=== PATIENT | female | born 1935 | race Caucasian/White ===

== ENCOUNTER 2016-09-22 12:30 | Emergency (ER) | payer OTHER ==
[~2016-09-22 12:30] MED LIST: ASPI81TA85 PO; ATEN100T PO; HYZA100T6 PO; LIPI20TA PO; MULT1TAB10 PO; NEXI40CA PO; VITA200016 PO
--- NOTE | 2016-09-22 13:35 | EDDOCDS ---
Nurse's Notes [facility] Name: Nata Monroy Age: 80 yrs Sex: Female : 1935 Arrival Date: 09/22/2016 Time: 12:30 Bed Triage 3 Private MD: NO PRIMARY PHYSICIAN, . Diagnosis: Ventral hernia-LEFT ABDOMEN Presentation: 09/22 12:36 Presenting complaint: Patient states: "My side is bothering me. I've got a hernia in jc4 the same spot". Complains of pain that began 2-3 weeks ago, but is worse today. Adult Sepsis Screening: The patient does not have new or worsening altered mentation. Patient's respiratory rate is less than 22. Systolic blood pressure is greater than 100. Patient has a qSOFA score of 0- Negative Sepsis Screen. Suicide/Homicide risk assessment- the patient denies having any suicidal and/or homicidal ideations and does not present with any other emotional, behavioral or mental health complaints. Status: Patient is not a mechanical service specialist or dependent. Transition of care: patient was not received from another setting of care. 12:36 Method Of Arrival: Walkin/Carried/Asstd [facility] 12:43 Acuity: LONG Level 3 4 Triage Assessment: 12:42 General: Appears in no apparent distress. 4 12:42 Pain: Pain currently is 8 out of 10 on a pain scale. 4 Historical: - Allergies: no known allergies; - Home Meds: 1. Vitamin D Oral 2000 units daily (Last dose: 09/22/2016 07:45) 2. atenolol 100 mg Oral tab 1 tab once daily (Last dose: 09/22/2016 07:45) 3. Lipitor 40 mg Oral tab 1 tab once daily (Last dose: 09/22/2016 07:45) 4. aspirin 81 mg Oral tab 1 tab once daily (Last dose: 09/22/2016 07:45) 5. losartan-hydrochlorothiazide 100-25 mg oral tab 1 tab once daily (Last dose: 09/22/2016 07:45) 6. multivitamin Oral tab 1 tablet daily (Last dose: 09/22/2016 07:45) 7. Nexium 40 mg Oral cpDR 1 cap once daily (Last dose: 09/22/2016 07:45) - PMHx: Hypertension; Hypercholesterolemia; - PSHx: Aortic Aneurysm Repair; CABG; - Social history: Smoking status: Patient states was never smoker of tobacco. No barriers to communication noted, The patient speaks fluent Estonian. - Family history: Not pertinent. - : The pt / caregiver states he / she is not on anticoagulants. Home medication list is obtained from the patient. - Exposure Risk Screening:: None identified. Screenin:50 Screening information is obtained from the patient. Fall risk: At risk due to age. js13 Assistance ADL's: requires no assistance with activities of daily living. Abuse/DV Screen: The patient / caregiver reports he/she is: not in a situation that causes fear, pain or injury. Nutritional screening: No deficits noted. Advance Directives: There is no active DNR order. home support is adequate. Assessment: 13:30 General: Appears in no apparent distress, Behavior is appropriate for age, cooperative. js13 Pain: Pain currently is 4 out of 10 on a pain scale. Neurological: Level of Consciousness is awake, alert. Respiratory: Airway is patent Respiratory effort is even, unlabored, Respiratory pattern is regular, symmetrical. Derm: Skin is pink, warm & dry. Vital Signs: 12:31 BP 187 / 86; Pulse 93; Resp 18 S; Temp 96.7(O); Pulse Ox 96% on R/A; Weight 84.82 kg gr2 (R); Height 5 ft. 4 in. (162.56 cm) (R); Pain 8/10; 12:49 BP 164 / 70 RA Sitting (man/reg); dem1 13:31 BP 161 / 72; Pulse 78; Resp 18; Temp 96.2(O); Pulse Ox 96% on R/A; Pain 2/10; nb2 12:31 Body Mass Index 32.10 (84.82 kg, 162.56 cm) gr2 Vitals: 12:31 Log In Time: September 22, 2016 at 12:31. gr2 ED Course: 12:31 Patient visited by Aislinn Hanson. gr2 12:31 NO PRIMARY PHYSICIAN, . is Private Physician. gr2 12:31 Patient moved to Waiting gr2 12:34 Patient visited by Aislinn Hanson. gr2 12:35 Patient moved to Pre RCE gr2 12:38 Triage Initiated jc4 12:43 Patient moved to Triage 3 jc4 12:50 Patient visited by Yaneth Chen. dem1 12:50 The patient / caregiver is instructed regarding the plan of care and ED course. js13 13:08 Patient name changed from Nata\\S\\R\\S\\Monroy\\S\\ to Nata\\S\\Liv\\S\\Monroy. EDMS 13:09 [facility]. dt4 13:09 Layla Bassett MD is Attending Physician. dt4 13:09 Patient visited by Aurelia Gandara PA-C. dt4 13:09 [facility] Payment Agreement was scanned into [employer] and attached to record. 13:29 Walt Mott is Referral Physician. dt4 13:30 No IV's were initiated during this patient's visit. No procedures done that require 13 assistance. 13:32 Patient visited by Norma Davis. nb2 Order Results: There are currently no results for this order. Outcome: 13:29 Discharge ordered by Provider. dt4 13:30 Discharge Assessment: Patient awake, alert and oriented x 3. No cognitive and/or js13 functional deficits noted. Patient verbalized understanding of disposition instructions. patient administered narcotics - no. The following High Risk Discharge criteria are identified: None. Discharged to home ambulatory, with family. Condition: stable Condition: improved. Discharge instructions given to patient, Instructed on discharge instructions, follow up and referral plans. Demonstrated understanding of instructions, Pt was receptive of discharge instructions/ teaching. No special radiology studies were completed. Property :Personal belongings accompany Pt. 13:33 Patient left the ED. js13 Signatures: Dispatcher [employer] EDVT Sandro Gudino, Reg Reg lg Amanda Nuñez, RN RN jc4 Yaneth Chen dem1 Amanda Ledesma,MARIANNA RN js13 Aislinn Hanson gr2 Aurelia Gandara PA-C PA-C dt4 Norma Davis nb2 Corrections: (The following items were deleted from the chart) 12:44 12:36 Acuity: LONG Level 4 jc jc4 MTDD
--- NOTE | 2016-09-22 13:35 | EDDOCDS ---
Physician Documentation [facility] Name: Nata Monroy Age: 80 yrs Sex: Female : 1935 Arrival Date: 09/22/2016 Time: 12:30 Bed Triage 3 Private MD: NO PRIMARY PHYSICIAN, . Disposition: 09/22/16 13:29 Discharged to Home/Self Care. Impression: Ventral hernia - LEFT ABDOMEN. - Condition is Stable. - Discharge Instructions: Hernia. - Medication Reconciliation, Local Pharmacy Hours form. - Follow up: Emergency Department; When: As needed; Reason: Worsening of conditions. Follow up: Walt Garcia; When: Call to arrange an appointment; Reason: Wound/Symptom Recheck, Recheck today's complaints, Continuance of care. - Problem is new. - Symptoms have improved. - Notes: CALL DR. GARCIA'S OFFICE SATURDAY TO SCHEDULE AN APPOINTMENT TO BE SEEN FOR THE HERNIA. IF THIS AREA EVER BECOMES RED, PAINFUL, HARD OR YOU ARE HAVING FEVERS, NAUSEA, VOMITING, PLEASE RETURN TO THE ER IMMEDIATELY THESE COULD BE A SURGICAL EMERGENCY. Historical: - Allergies: no known allergies; - Home Meds: 1. Vitamin D Oral 2000 units daily (Last dose: 09/22/2016 07:45) 2. atenolol 100 mg Oral tab 1 tab once daily (Last dose: 09/22/2016 07:45) 3. Lipitor 40 mg Oral tab 1 tab once daily (Last dose: 09/22/2016 07:45) 4. aspirin 81 mg Oral tab 1 tab once daily (Last dose: 09/22/2016 07:45) 5. losartan-hydrochlorothiazide 100-25 mg oral tab 1 tab once daily (Last dose: 09/22/2016 07:45) 6. multivitamin Oral tab 1 tablet daily (Last dose: 09/22/2016 07:45) 7. Nexium 40 mg Oral cpDR 1 cap once daily (Last dose: 09/22/2016 07:45) - PMHx: Hypertension; Hypercholesterolemia; - PSHx: Aortic Aneurysm Repair; CABG; - Social history: Smoking status: Patient states was never smoker of tobacco. No barriers to communication noted, The patient speaks fluent Solomon Islander. - Family history: Not pertinent. - : The pt / caregiver states he / she is not on anticoagulants. Home medication list is obtained from the patient. - Exposure Risk Screening:: None identified. Vital Signs: 09/22 12:31 BP 187 / 86; Pulse 93; Resp 18 S; Temp 96.7(O); Pulse Ox 96% on R/A; Weight 84.82 kg / gr2 187 lbs (R); Height 5 ft. 4 in. (162.56 cm) (R); Pain 8/10; 12:49 BP 164 / 70 RA Sitting (man/reg); dem1 13:31 BP 161 / 72; Pulse 78; Resp 18; Temp 96.2(O); Pulse Ox 96% on R/A; Pain 2/10; nb2 12:31 Body Mass Index 32.10 (84.82 kg, 162.56 cm) gr2 MDM: 13:09 [facility] Payment Agreement was scanned into [employer] and attached to record. 13:09 Financial registration complete. Signatures: Sandro Gudino, Reg Reg Amanda Nuñez RN RN jc4 Amanda Ledesma RN RN js13 Aurelia Gandara, PANestor PAMauriceC dt4 The chart was reviewed and I authenticate all verbal orders and agree with the evaluation and treatment provided.Attachments: 13:09 [facility] Payment Agreement lg MTDD
--- NOTE | 2016-09-25 11:05 | EDDOCDS ---
Physician Documentation [facility] Name: Nata Monroy Age: 80 yrs Sex: Female : 1935 Arrival Date: 09/22/2016 Time: 12:30 Bed Triage 3 Private MD: NO PRIMARY PHYSICIAN, . Disposition: 09/22/16 13:29 Discharged to Home/Self Care. Impression: Ventral hernia - LEFT ABDOMEN. - Condition is Stable. - Discharge Instructions: Hernia. - Medication Reconciliation, Local Pharmacy Hours form. - Follow up: Emergency Department; When: As needed; Reason: Worsening of conditions. Follow up: Walt Garcia; When: Call to arrange an appointment; Reason: Wound/Symptom Recheck, Recheck today's complaints, Continuance of care. - Problem is new. - Symptoms have improved. - Notes: CALL DR. GARCIA'S OFFICE SATURDAY TO SCHEDULE AN APPOINTMENT TO BE SEEN FOR THE HERNIA. IF THIS AREA EVER BECOMES RED, PAINFUL, HARD OR YOU ARE HAVING FEVERS, NAUSEA, VOMITING, PLEASE RETURN TO THE ER IMMEDIATELY THESE COULD BE A SURGICAL EMERGENCY. Historical: - Allergies: no known allergies; - Home Meds: 1. Vitamin D Oral 2000 units daily (Last dose: 09/22/2016 07:45) 2. atenolol 100 mg Oral tab 1 tab once daily (Last dose: 09/22/2016 07:45) 3. Lipitor 40 mg Oral tab 1 tab once daily (Last dose: 09/22/2016 07:45) 4. aspirin 81 mg Oral tab 1 tab once daily (Last dose: 09/22/2016 07:45) 5. losartan-hydrochlorothiazide 100-25 mg oral tab 1 tab once daily (Last dose: 09/22/2016 07:45) 6. multivitamin Oral tab 1 tablet daily (Last dose: 09/22/2016 07:45) 7. Nexium 40 mg Oral cpDR 1 cap once daily (Last dose: 09/22/2016 07:45) - PMHx: Hypertension; Hypercholesterolemia; - PSHx: Aortic Aneurysm Repair; CABG; - Social history: Smoking status: Patient states was never smoker of tobacco. No barriers to communication noted, The patient speaks fluent St Helenian. - Family history: Not pertinent. - : The pt / caregiver states he / she is not on anticoagulants. Home medication list is obtained from the patient. - Exposure Risk Screening:: None identified. Vital Signs: 09/22 12:31 BP 187 / 86; Pulse 93; Resp 18 S; Temp 96.7(O); Pulse Ox 96% on R/A; Weight 84.82 kg / gr2 187 lbs (R); Height 5 ft. 4 in. (162.56 cm) (R); Pain 8/10; 12:49 BP 164 / 70 RA Sitting (man/reg); dem1 13:31 BP 161 / 72; Pulse 78; Resp 18; Temp 96.2(O); Pulse Ox 96% on R/A; Pain 2/10; nb2 12:31 Body Mass Index 32.10 (84.82 kg, 162.56 cm) gr2 MDM: 13:09 [facility] Payment Agreement was scanned into [employer] and attached to record. lg 13:09 Financial registration complete. lg 13:35 ED course: PT STATES LEFT SIDED ABDOMINAL PAIN THAT BEGAN TODAY AFTER CLEANING OFF HER dt4 CAR. STATES HX OF A HERNIA OVER THE AREA OF CONCERN FROM AN ANEURYSM REPAIR YEARS AGO. STATES HAS NOT HAD THE HERNIA PREVIOUSLY REPAIRED. AFTER WALKING INTO EXAM ROOM, PT STATES HER PAIN HAS NOW IMPROVED. DENIES ANY PAIN CURRENTLY. . 15:49 T-Sheet-- Draft Copy was scanned into [employer] and attached to record. klr Signatures: Sandro Gudino, Reg Reg lg Amanda Nuñez, RN RN jc4 Amanda Ledesma,RN RN js13 Aurelia Gandara, PHOEBE PAAlivia Giles The chart was reviewed and I authenticate all verbal orders and agree with the evaluation and treatment provided.Attachments: 13:09 [facility] Payment Agreement lg 15:49 T-Sheet-- Draft Copy klr Chart Complete MTDD
--- NOTE | 2016-09-25 11:05 | EDDOCDS ---
Nurse's Notes [facility] Name: Nata Monroy Age: 80 yrs Sex: Female : 1935 Arrival Date: 09/22/2016 Time: 12:30 Bed Triage 3 Private MD: NO PRIMARY PHYSICIAN, . Diagnosis: Ventral hernia-LEFT ABDOMEN Presentation: 09/22 12:36 Presenting complaint: Patient states: "My side is bothering me. I've got a hernia in jc4 the same spot". Complains of pain that began 2-3 weeks ago, but is worse today. Adult Sepsis Screening: The patient does not have new or worsening altered mentation. Patient's respiratory rate is less than 22. Systolic blood pressure is greater than 100. Patient has a qSOFA score of 0- Negative Sepsis Screen. Suicide/Homicide risk assessment- the patient denies having any suicidal and/or homicidal ideations and does not present with any other emotional, behavioral or mental health complaints. Status: Patient is not a service representative or dependent. Transition of care: patient was not received from another setting of care. 12:36 Method Of Arrival: Walkin/Carried/Asstd [facility] 12:43 Acuity: LONG Level 3 4 Triage Assessment: 12:42 General: Appears in no apparent distress. 4 12:42 Pain: Pain currently is 8 out of 10 on a pain scale. 4 Historical: - Allergies: no known allergies; - Home Meds: 1. Vitamin D Oral 2000 units daily (Last dose: 09/22/2016 07:45) 2. atenolol 100 mg Oral tab 1 tab once daily (Last dose: 09/22/2016 07:45) 3. Lipitor 40 mg Oral tab 1 tab once daily (Last dose: 09/22/2016 07:45) 4. aspirin 81 mg Oral tab 1 tab once daily (Last dose: 09/22/2016 07:45) 5. losartan-hydrochlorothiazide 100-25 mg oral tab 1 tab once daily (Last dose: 09/22/2016 07:45) 6. multivitamin Oral tab 1 tablet daily (Last dose: 09/22/2016 07:45) 7. Nexium 40 mg Oral cpDR 1 cap once daily (Last dose: 09/22/2016 07:45) - PMHx: Hypertension; Hypercholesterolemia; - PSHx: Aortic Aneurysm Repair; CABG; - Social history: Smoking status: Patient states was never smoker of tobacco. No barriers to communication noted, The patient speaks fluent Georgian. - Family history: Not pertinent. - : The pt / caregiver states he / she is not on anticoagulants. Home medication list is obtained from the patient. - Exposure Risk Screening:: None identified. Screenin:50 Screening information is obtained from the patient. Fall risk: At risk due to age. js13 Assistance ADL's: requires no assistance with activities of daily living. Abuse/DV Screen: The patient / caregiver reports he/she is: not in a situation that causes fear, pain or injury. Nutritional screening: No deficits noted. Advance Directives: There is no active DNR order. home support is adequate. Assessment: 13:30 General: Appears in no apparent distress, Behavior is appropriate for age, cooperative. js13 Pain: Pain currently is 4 out of 10 on a pain scale. Neurological: Level of Consciousness is awake, alert. Respiratory: Airway is patent Respiratory effort is even, unlabored, Respiratory pattern is regular, symmetrical. Derm: Skin is pink, warm & dry. Vital Signs: 12:31 BP 187 / 86; Pulse 93; Resp 18 S; Temp 96.7(O); Pulse Ox 96% on R/A; Weight 84.82 kg gr2 (R); Height 5 ft. 4 in. (162.56 cm) (R); Pain 8/10; 12:49 BP 164 / 70 RA Sitting (man/reg); dem1 13:31 BP 161 / 72; Pulse 78; Resp 18; Temp 96.2(O); Pulse Ox 96% on R/A; Pain 2/10; nb2 12:31 Body Mass Index 32.10 (84.82 kg, 162.56 cm) gr2 Vitals: 12:31 Log In Time: September 22, 2016 at 12:31. gr2 ED Course: 12:31 Patient visited by Aislinn Hanson. gr2 12:31 NO PRIMARY PHYSICIAN, . is Private Physician. gr2 12:31 Patient moved to Waiting gr2 12:34 Patient visited by Aislinn Hanson. gr2 12:35 Patient moved to Pre RCE gr2 12:38 Triage Initiated jc4 12:43 Patient moved to Triage 3 jc4 12:50 Patient visited by Yaneth Chen. dem1 12:50 The patient / caregiver is instructed regarding the plan of care and ED course. js13 13:08 Patient name changed from Nata\\S\\R\\S\\Monroy\\S\\ to Nata\\S\\Liv\\S\\Monroy. EDMS 13:09 Aurelia Gandara PA-C is PHCP. dt4 13:09 Layla Bassett MD is Attending Physician. dt4 13:09 Patient visited by Aurelia Gandara PA-C. dt4 13:09 [facility] Payment Agreement was scanned into [employer] and attached to record. lg 13:29 Walt Mott is Referral Physician. dt4 13:30 No IV's were initiated during this patient's visit. No procedures done that require js13 assistance. 13:32 Patient visited by Norma Davis. nb2 15:49 T-Sheet-- Draft Copy was scanned into [employer] and attached to record. klr Order Results: There are currently no results for this order. Outcome: 13:29 Discharge ordered by Provider. dt4 13:30 Discharge Assessment: Patient awake, alert and oriented x 3. No cognitive and/or js13 functional deficits noted. Patient verbalized understanding of disposition instructions. patient administered narcotics - no. The following High Risk Discharge criteria are identified: None. Discharged to home ambulatory, with family. Condition: stable Condition: improved. Discharge instructions given to patient, Instructed on discharge instructions, follow up and referral plans. Demonstrated understanding of instructions, Pt was receptive of discharge instructions/ teaching. No special radiology studies were completed. Property :Personal belongings accompany Pt. 13:33 Patient left the ED. js13 Signatures: Dispatcher [employer] EDMS Sandro Gudino, Trevor Reg lg Amanda Nuñez, RN RN jc4 Yaneth Chen dem1 Amanda Ledesma,MARIANNA RN js13 Aislinn Hanson gr2 Aurelia Gandara PA-C PA-C dt4 Alivia Lora klr Norma Davis nb2 Corrections: (The following items were deleted from the chart) 12:44 12:36 Acuity: LONG Level 4 jc4 jc4 Chart Complete MTDD
--- NOTE | 2016-09-25 11:05 | EDDOCDS ---
Physician Documentation [facility] Name: Nata Monroy Age: 80 yrs Sex: Female : 1935 Arrival Date: 09/22/2016 Time: 12:30 Bed Triage 3 Private MD: NO PRIMARY PHYSICIAN, . Disposition: 09/22/16 13:29 Discharged to Home/Self Care. Impression: Ventral hernia - LEFT ABDOMEN. - Condition is Stable. - Discharge Instructions: Hernia. - Medication Reconciliation, Local Pharmacy Hours form. - Follow up: Emergency Department; When: As needed; Reason: Worsening of conditions. Follow up: Walt Garcia; When: Call to arrange an appointment; Reason: Wound/Symptom Recheck, Recheck today's complaints, Continuance of care. - Problem is new. - Symptoms have improved. - Notes: CALL DR. GARCIA'S OFFICE SATURDAY TO SCHEDULE AN APPOINTMENT TO BE SEEN FOR THE HERNIA. IF THIS AREA EVER BECOMES RED, PAINFUL, HARD OR YOU ARE HAVING FEVERS, NAUSEA, VOMITING, PLEASE RETURN TO THE ER IMMEDIATELY THESE COULD BE A SURGICAL EMERGENCY. Historical: - Allergies: no known allergies; - Home Meds: 1. Vitamin D Oral 2000 units daily (Last dose: 09/22/2016 07:45) 2. atenolol 100 mg Oral tab 1 tab once daily (Last dose: 09/22/2016 07:45) 3. Lipitor 40 mg Oral tab 1 tab once daily (Last dose: 09/22/2016 07:45) 4. aspirin 81 mg Oral tab 1 tab once daily (Last dose: 09/22/2016 07:45) 5. losartan-hydrochlorothiazide 100-25 mg oral tab 1 tab once daily (Last dose: 09/22/2016 07:45) 6. multivitamin Oral tab 1 tablet daily (Last dose: 09/22/2016 07:45) 7. Nexium 40 mg Oral cpDR 1 cap once daily (Last dose: 09/22/2016 07:45) - PMHx: Hypertension; Hypercholesterolemia; - PSHx: Aortic Aneurysm Repair; CABG; - Social history: Smoking status: Patient states was never smoker of tobacco. No barriers to communication noted, The patient speaks fluent Bangladeshi. - Family history: Not pertinent. - : The pt / caregiver states he / she is not on anticoagulants. Home medication list is obtained from the patient. - Exposure Risk Screening:: None identified. Vital Signs: 09/22 12:31 BP 187 / 86; Pulse 93; Resp 18 S; Temp 96.7(O); Pulse Ox 96% on R/A; Weight 84.82 kg / gr2 187 lbs (R); Height 5 ft. 4 in. (162.56 cm) (R); Pain 8/10; 12:49 BP 164 / 70 RA Sitting (man/reg); dem1 13:31 BP 161 / 72; Pulse 78; Resp 18; Temp 96.2(O); Pulse Ox 96% on R/A; Pain 2/10; nb2 12:31 Body Mass Index 32.10 (84.82 kg, 162.56 cm) gr2 MDM: 13:09 [facility] Payment Agreement was scanned into [employer] and attached to record. lg 13:09 Financial registration complete. lg 13:35 ED course: PT STATES LEFT SIDED ABDOMINAL PAIN THAT BEGAN TODAY AFTER CLEANING OFF HER dt4 CAR. STATES HX OF A HERNIA OVER THE AREA OF CONCERN FROM AN ANEURYSM REPAIR YEARS AGO. STATES HAS NOT HAD THE HERNIA PREVIOUSLY REPAIRED. AFTER WALKING INTO EXAM ROOM, PT STATES HER PAIN HAS NOW IMPROVED. DENIES ANY PAIN CURRENTLY. . 15:49 T-Sheet-- Draft Copy was scanned into [employer] and attached to record. klr Signatures: Sandro Gudino, Reg Reg lg Amanda Nuñez, RN RN jc4 Amanda Ledesma,RN RN js13 Aurelia Gandara, PHOEBE PAAlivia Giles The chart was reviewed and I authenticate all verbal orders and agree with the evaluation and treatment provided.Attachments: 13:09 [facility] Payment Agreement lg 15:49 T-Sheet-- Draft Copy klr Chart Complete MTDD
== END 2016-09-22 13:33 | disposition home or self-care (01) ==
LOC: M ED 12:30
DX: K43.9 Ventral hernia without obstruction or gangrene (principal); I10 Essential (primary) hypertension; E78.00 Pure hypercholesterolemia, unspecified; Z95.1 Presence of aortocoronary bypass graft; Z79.899 Other long term (current) drug therapy; Z79.82 Long term (current) use of aspirin; Z98.890 Other specified postprocedural states

== ENCOUNTER → 2016-10-11 | Outpatient (REF) | payer OTHER ==
[2016-10-12 13:36] LABS: PERCENT SATURATION 41.3 % (13.2-37.4)
== END ==
LOC: M LAB REF 12:59
PROVIDERS: ATTEND Internal Medicine Nephrology
DX: D64.9 Anemia, unspecified (principal); N18.9 Chronic kidney disease, unspecified

== ENCOUNTER 2016-12-10 17:24 | Emergency (ER) | payer OTHER ==
[~2016-12-10] VITALS: Ht 165.1 cm; Wt 86.2 kg
[2016-12-10 20:35] VITALS: BP 134/83
== END 2016-12-10 20:55 | disposition home or self-care (01) ==
LOC: M ED 18:39
DX: K46.9 Unspecified abdominal hernia without obstruction or gangrene (principal); Z87.891 Personal history of nicotine dependence; Z95.1 Presence of aortocoronary bypass graft; I25.2 Old myocardial infarction; E78.00 Pure hypercholesterolemia, unspecified; I10 Essential (primary) hypertension; K21.9 Gastro-esophageal reflux disease without esophagitis; Z85.828 Personal history of other malignant neoplasm of skin; Z79.82 Long term (current) use of aspirin; Z79.899 Other long term (current) drug therapy

== ENCOUNTER → 2017-01-09 | Outpatient (REF) | payer OTHER ==
[2017-01-09 18:52] LABS: BASO % 0.5 % (0.0-1.0); EOS # 0.4 K/mm3 (0.0-0.50); EOS % 6.3 % (0.0-3.0); LARGE UNSTAINED CELL # 0.1 K/mm3 (0.0-0.4); LARGE UNSTAINED CELL % 1.7 % (0.0-4.0); LYMPH # 1.3 K/mm3 (1.5-4.5); LYMPH % 16.6 % (24.0-44.0); MEAN CORPUSCULAR HEMOGLOBIN 32.5 pg (27.0-33.0); MEAN CORPUSCULAR HGB CONC 32.7 g/dl (32.0-36.5); MEAN CORPUSCULAR VOLUME 99.6 fl (80.0-96.0); MONO # 0.5 K/mm3 (0.0-0.8); MONO % 6.7 % (0.0-5.0); NEUTROPHILS # 4.7 K/mm3 (1.8-7.7); NEUTROPHILS % 68.1 % (36.0-66.0); PLATELET COUNT, AUTOMATED 161 k/mm3 (150-450); RED CELL DISTRIBUTION WIDTH 12.2 % (11.5-14.5); WHITE BLOOD COUNT 6.8 K/mm3 (4.0-10.0)
[2017-01-09 19:12] LABS: ALBUMIN 3.6 GM/DL (3.2-5.2); ALBUMIN/GLOBULIN RATIO 1.06 (1.00-1.93); BILIRUBIN,TOTAL 0.4 MG/DL (0.2-1.0); CALCIUM LEVEL 8.7 MG/DL (8.8-10.2); CREATININE FOR GFR 2.01 MG/DL (0.55-1.02); GLOMERULAR FILTRATION RATE 25.2 (>32); MAGNESIUM LEVEL 1.6 MG/DL (1.8-2.4); POTASSIUM SERUM 4.7 MEQ/L (3.5-5.1)
== END ==
LOC: M LAB REF 16:25
PROVIDERS: ATTEND Family Medicine
DX: I71.4 Abdominal aortic aneurysm, without rupture (principal); K46.9 Unspecified abdominal hernia without obstruction or gangrene; R10.9 Unspecified abdominal pain; D64.9 Anemia, unspecified; I35.1 Nonrheumatic aortic (valve) insufficiency; N18.3 Chronic kidney disease, stage 3 (moderate); I25.10 Atherosclerotic heart disease of native coronary artery without angina pectoris; I34.1 Nonrheumatic mitral (valve) prolapse; I25.2 Old myocardial infarction

== ENCOUNTER → 2017-01-10 | Outpatient (CLI) | payer OTHER ==
--- NOTE | 2017-01-10 16:09 | ECGEPIP ---
Stationary ECG Study [facility] Test Date: 2017-01-10 Pat Name: RUSLAN SALAZAR Department: Room: - Gender: F Revival Clerk: [facility] : 1935 Requested By: Roselia Christine Order Number: [id number] Reading MD: Jam Joseph Measurements Intervals [place] Rate: 61 P: 27 UT: 191 QRS: 13 QRSD: 84 T: 103 QT: 390 QTc: 395 Interpretive Statements Normal sinus rhythm Anterior IN, age indeterminate Nonspecific ST-T wave abnormalities in the high lateral leads Comparison tracing not on file Electronically Signed On 01-10-2017 16:09:17 EDT by Jam Joseph
== END ==
LOC: M EKG 09:48
PROVIDERS: ATTEND Family Medicine
DX: I35.1 Nonrheumatic aortic (valve) insufficiency (principal)

== ENCOUNTER 2017-03-22 07:49 | Inpatient (IN) | payer OTHER, MEDICARE ==
[~2017-03-22] VITALS: Ht 165.1 cm; Wt 88.0 kg
--- NOTE | 2017-03-22 00:08 | HPE ---
DATE OF ADMISSION: 03/22/2017 ADMITTING DIAGNOSIS: Ventral incisional hernia. HISTORY OF PRESENT ILLNESS: The patient is an 81-year-old woman who has had a ventral incisional hernia for several years at least. She had undergone an abdominal aortic aneurysm repair back in 2007. This was done through an oblique left-sided abdominal incision. She developed a hernia through this incision several years later. I had seen her back in November 2013 and confirmed an approximately 10 cm bulge slightly above the level of her skin scar in the left midabdomen. She was asymptomatic at that point. I saw her again in November 2016 in followup to an emergency department visit for abdominal discomfort. She had reported the onset of some discomfort in the area of her hernia when reaching upwards and around to the side. Her discomfort had largely resolved by the time she was seen in the emergency department. We had initially elected not to pursue repair, but then she returned in December where she again noted severe abdominal pain in the area of her hernia after relatively mild exertion. She on that occasion had some discomfort that lasted approximately 6 hours with some vomiting associated. The pain subsequently resolved. Repeat examination confirmed a 10-12 cm bulge oriented transversely just above the medial aspect of her oblique scar in the left midabdomen. She is now being admitted to undergo repair of her hernia. I have recommended that we proceed with an open approach to the hernia repair. I did advise her that we may wish to perform laparoscopy for placement of an internal mesh. The patient was counseled for the surgery and desires to proceed as I have recommended. ALLERGIES: The patient denies any known drug allergies. CURRENT MEDICATIONS: Include atenolol, Hyzaar, multivitamin, aspirin, vitamin D , Lipitor, and Nexium. PAST MEDICAL HISTORY: Her medical history is significant for hypertension. She has a history of hyperlipidemia. She has coronary artery disease and has undergone a previous bypass. She has a degree of chronic kidney disease. She has her known left mid abdominal hernia. She does have a history of some heartburn. She has had some basal cell and squamous cell skin cancers. PAST SURGICAL HISTORY: Significant for coronary artery bypass grafting in 2004. She has undergone a previous tubal ligation. She had bilateral cataract surgery. She had an open abdominal aortic aneurysm repair in July 2008. She has undergone colonoscopies in 2007, 2010 and 2015. FAMILY HISTORY: The patient's father is due to heart disease and her mother from hypertension. SOCIAL HISTORY: Patient is a nonsmoker and denies any alcohol use. REVIEW OF SYSTEMS: Reveals no history of chills or fever or weight gain or loss. She has had no chronic severe headaches, seizure or stroke. She denies any chest pain or palpitations. She has had no history of chronic cough, wheezing or sputum production. She does have some heartburn and reflux symptoms. She denies any rectal bleeding. She denies dysuria or hematuria. She denies any significant musculoskeletal problems. She has no history of deep venous thrombosis (DVT) or pulmonary embolus. PHYSICAL EXAMINATION: Revealed a pleasant older woman in no distress. Her height is recorded as 65 inches with a most recent weight of 87 kg yielding a body mass index (BMI) of approximately 32. The head and neck exam shows normocephalic findings. Conjunctivae are pink and moist and there is no scleral icterus. Nose reveals no lesions. Neck exam shows no adenopathy or mass and there is no cervical bruit. Heart exam shows a regular rate and rhythm. The lungs are clear to auscultation bilaterally. Abdominal exam revealed a somewhat obese abdomen. She has a midline scar, as well as an oblique left midabdominal scar. With Valsalva there is a bulge approximately 10-12 cm in size, oriented somewhat transversely. This is just above the medial aspect of her oblique scar. With rest, the hernia reduces spontaneously. The edges of the defect are not distinctly palpable. The remainder of the abdomen is soft and nontender. Skin is warm and dry. Extremities are without edema. She is alert and oriented times three. IMPRESSION: 1. Ventral incisional hernia left midabdomen. 2. Hypertension. 3. Atherosclerotic coronary artery disease status post bypass grafting. 4. Hyperlipidemia. 5. Chronic kidney disease. 6. Gastroesophageal reflux and heartburn. PLAN: The patient is being admitted to undergo an open repair of her ventral incisional hernia. I would anticipate that prosthetic mesh will be utilized at some level in the repair. It may be reasonable to perform laparoscopy and place this on the peritoneal surface of the abdominal wall. However, if in the course of the repair, it is possible to place this between the muscle layers then this would obviate the need for laparoscopy. The patient was counseled regarding the risks of the procedure. Risks include, but are not limited to bleeding, infection, scarring, adverse drug reaction, need for further surgery, injury of internal organs, and recurrence of her hernia. She had an opportunity to ask questions and desires to proceed with the surgery as I have outlined it. MORALESD
[~2017-03-22 07:49] MED LIST changes: +MAGN250T9 PO; +MULTTAB26 PO
[2017-03-22] MEDS ORDERED: LR 1,000 ML IV ONE (08:00)
[2017-03-22] MEDS ORDERED: ceFAZolin 2 GM/D5W 50 ML IV BAG (J0690) As Ordered ONE (08:05)
[2017-03-22] MEDS ORDERED: LR 1,000 ML IV SCH ×2 (08:15→13:00)
[2017-03-22] MEDS ORDERED: PROPOFOL 200 MG/20 ML VIAL As Ordered ONE (08:19)
[2017-03-22] MEDS ORDERED: dexameTHASONE 4 MG/ML 1ML VIAL (J1100) As Ordered ONE (08:19)
[2017-03-22] MEDS ORDERED: ONDANSETRON 4MG/2ML VIAL (J2405) As Ordered ONE (08:19)
[2017-03-22] MEDS ORDERED: ROCURONIUM BROMIDE 50 MG/5 ML VIAL/SYRINGE As Ordered ONE (08:19)
[2017-03-22] MEDS ORDERED: LIDOCAINE 2% INJ 100 MG/5 ML SDV (FOR ANES.) As Ordered ONE (08:19)
[2017-03-22] MEDS ORDERED: MIDAZOLAM INJ 2 MG/2 ML VIAL (J2250) As Ordered ONE (08:20)
[2017-03-22] MEDS ORDERED: fentaNYL 100 MCG/2 ML INJECTION (J3010) As Ordered ONE ×2 (08:20→11:00)
[2017-03-22] MEDS ORDERED: NEOSTIGMINE 1MG/ML 5 ML SYRINGE (J2710) As Ordered ONE (08:53)
[2017-03-22] MEDS ORDERED: GLYCOPYRROLATE INJ 0.2 MG/ML 2 ML VIAL As Ordered ONE (08:53)
[2017-03-22] MEDS ORDERED: BUPIVACAINE HCL 0.25% 30 ML VIAL As Ordered ONE (09:31)
--- NOTE | 2017-03-22 09:40 | REP ---
Clinical: Preoperative clearance . Comparison: 01/09/2017. Findings: The mediastinum and cardiac silhouette are stable and within normal limits for portable technique. The patient is noted to be status post sternotomy and CABG. The lung gerber are stable/clear without acute consolidation, effusion, or pneumothorax. Skeletal structures are intact. Impression: No acute cardiopulmonary process appreciated. Signed by Scot Roberson MD 03/22/2017 09:32 A
[2017-03-22] MEDS ORDERED: PHENYLephrine HCL 500 MCG/5 ML (100MCG/ML) SYRINGE (J2370) As Ordered ONE (10:52)
[2017-03-22] MEDS ORDERED: PHENYLEPHRINE INJ 10MG/ML VIAL (J2370) As Ordered ONE (10:52)
[2017-03-22] MEDS ORDERED: SUGAMMADEX SODIUM 500 MG/5 ML VIAL (BRIDION) As Ordered ONE (12:02)
[2017-03-22] MEDS ORDERED: NORCO, ANEXSIA 5/325MG TABLET (HYDROcodone/ACETAMINOPHEN) PO PRN (12:30)
[2017-03-22] MEDS ORDERED: MORPHINE 2 MG/ML 1ML SYRINGE IV PRN (12:30)
[2017-03-22] MEDS ORDERED: ONDANSETRON 4MG/2ML VIAL (J2405) IV PRN ×2 (12:30→13:00)
[2017-03-22] MEDS ORDERED: ACETAMINOPHEN TAB 650MG DOSE (2X325MG) PO PRN (12:30)
[2017-03-22] MEDS ORDERED: NITROGLYCERIN 0.4 MG SUBL TABLET SL PRN (12:30)
[2017-03-22] MEDS ORDERED: LABETALOL HCL 100 MG/20 ML VIAL As Ordered ONE (12:55)
[2017-03-22] MEDS: LABETALOL HCL 100 MG/20 ML VIAL IV SCH ×2 (12:57→13:02)
[2017-03-22] MEDS ORDERED: METOCLOPRAMIDE INJ 10MG/2ML VIAL (J2765) IV PRN (13:00)
[2017-03-22] MEDS ORDERED: fentaNYL 100 MCG/2 ML INJECTION (J3010) IV PRN (13:00)
[2017-03-22] MEDS ORDERED: PERCOCET 5MG/325MG TAB PO PRN (13:00)
[2017-03-22 13:30] VITALS: BP 178/72
[2017-03-22 14:00] VITALS: BP 176/80
[2017-03-22] MEDS: DOCUSATE SODIUM 100 MG CAP PO SCH ×2 (14:26→20:39)
[2017-03-22] MEDS: hydroCHLOROthiazide 25 MG TAB PO SCH (14:26)
[2017-03-22] MEDS: LOSARTAN 50 MG TAB PO SCH (14:27)
[2017-03-22] MEDS: NORCO, ANEXSIA 5/325MG TABLET (HYDROcodone/ACETAMINOPHEN) PO PRN ×2 (14:28→23:23)
[2017-03-22] MEDS: LR 1,000 ML IV SCH ×2 (14:29→18:08)
[2017-03-22 15:00] VITALS: BP 152/76
[2017-03-22 16:00] VITALS: BP 147/84
[2017-03-22 20:00] VITALS: BP 148/72
[2017-03-22] MEDS: ENOXAPARIN 30 MG/0.3 ML SYR (J1650) SC SCH (20:39)
[2017-03-22] MEDS: ATORVASTATIN 20 MG TAB PO SCH (20:39)
[2017-03-22] MEDS: PANTOPRAZOLE 40MG TAB (PROTONIX) PO SCH (20:39)
[2017-03-23 01:10] VITALS: BP 123/59
[2017-03-23 05:20] VITALS: BP 140/68
[2017-03-23 05:51] LABS: BASO % 0.2 % (0.0-1.0); EOS % 0.3 % (0.0-3.0); LARGE UNSTAINED CELL % 0.4 % (0.0-4.0); LYMPH # 0.6 K/mm3 (1.5-4.5); LYMPH % 6.1 % (24.0-44.0); MEAN CORPUSCULAR HEMOGLOBIN 33.9 pg (27.0-33.0); MEAN CORPUSCULAR HGB CONC 33.8 g/dl (32.0-36.5); MEAN CORPUSCULAR VOLUME 100.5 fl (80.0-96.0); MONO # 0.4 K/mm3 (0.0-0.8); MONO % 3.7 % (0.0-5.0); NEUTROPHILS # 8.8 K/mm3 (1.8-7.7); NEUTROPHILS % 89.3 % (36.0-66.0); PLATELET COUNT, AUTOMATED 141 k/mm3 (150-450); RED CELL DISTRIBUTION WIDTH 12.3 % (11.5-14.5); WHITE BLOOD COUNT 9.9 K/mm3 (4.0-10.0)
[2017-03-23 06:19] LABS: CALCIUM LEVEL 8.6 MG/DL (8.8-10.2); CREATININE FOR GFR 1.99 MG/DL (0.55-1.02); GLOMERULAR FILTRATION RATE 25.5 (>32); POTASSIUM SERUM 4.7 MEQ/L (3.5-5.1)
[2017-03-23] MEDS: NORCO, ANEXSIA 5/325MG TABLET (HYDROcodone/ACETAMINOPHEN) PO PRN ×2 (09:09→15:35)
[2017-03-23] MEDS: DOCUSATE SODIUM 100 MG CAP PO SCH ×2 (09:09→20:50)
[2017-03-23] MEDS: hydroCHLOROthiazide 25 MG TAB PO SCH (09:09)
[2017-03-23] MEDS: ATENOLOL 50 MG TAB PO SCH (09:09)
[2017-03-23] MEDS: LOSARTAN 50 MG TAB PO SCH (09:10)
[2017-03-23 10:00] VITALS: BP 148/68
[2017-03-23 14:00] VITALS: BP 122/74
--- NOTE | 2017-03-23 14:07 | RO ---
DATE OF PROCEDURE: 03/22/2017 PREOPERATIVE DIAGNOSIS: Ventral incisional hernia of the left upper quadrant. POSTOPERATIVE DIAGNOSIS: Ventral incisional hernia of the left upper quadrant. PROCEDURE PERFORMED: Open repair of a left-sided ventral incisional hernia with Parietex mesh with lysis of adhesions. SURGEON: Walt Mott MD BLOGS MANAGER: Maury Siddiqi MD ANESTHESIA: General. INDICATIONS FOR THE PROCEDURE: The patient is an 81-year-old woman who is approximately 9 years status post open repair of an abdominal aortic aneurysm involving an oblique left-sided abdominal and flank incision. She developed an incisional hernia above the medial aspect of this years ago. This has recently become symptomatic, and she is now for repair. OPERATIVE PROCEDURE: The patient was placed under general endotracheal anesthesia. The patient's abdomen was prepped and draped in a sterile fashion. An approximately 10-cm incision was made through the medial portion of her old scar using a scalpel. This was deepened into the subcutaneous tissues using cautery dissection. A large underlying hernia sac was identified. The surrounding subcutaneous fatty tissues were elevated off this sac, and the sac was then opened. The sac was quite thin-walled. This was dissected free circumferentially down to the fascia. She was found to have an approximately 3 x 5 cm defect through all layers of the abdominal wall. There was some splitting of the external oblique with separation of the tissues medially. The medial border of the fascial defect appeared to lie at the edge of the rectus muscle. There was some omentum adherent around the edges of the fascial defect. This was freed by a combination of sharp and cautery dissection. Several small bleeding points were controlled with sutures. The omentum was reduced into the abdomen. Some adhesions of the omentum around the fascial defect on the peritoneal surface of the abdomen were freed to create an area for placement of mesh. The external oblique aponeurosis was freed from the underlying internal oblique muscle and fascia. Some sutures of 2-0 Ethibond were placed at the lateral aspect of the split in the external oblique to reapproximate this up to the edge of the defect in the internal oblique. A 12 cm round Parietex patch was selected. The edges were trimmed so that this became a roughly oval patch approximately 12 cm long x 8 cm wide. This was placed beneath the fascial defect. The medial and lateral ends were sutured in place with sutures of 0 Ethibond through the entire thickness of the abdominal wall incorporating the mesh. The lateral aspects of the mesh were then also sutured with 0 Ethibond. The fascial defect was then closed with interrupted simple sutures of 0 Ethibond. This appeared to give a nice repair of the defect. Approximately 25 mL of 0.25% Marcaine were infiltrated into the fascia and around the skin edges. A 19-Turkmen Isreal drain was placed through a stab wound above the wound to lie within the cavity that had been created. This was sutured to the skin with a 2-0 silk. The subcutaneous fat was approximated with several buried sutures of 3-0 chromic, and the skin edges were approximated with skin stanley. The patient tolerated the procedure well. She was awakened in the operating room, extubated, and moved to the recovery room in stable condition. ROSY
[2017-03-23 18:00] VITALS: BP 154/68
[2017-03-23] MEDS: PANTOPRAZOLE 40MG TAB (PROTONIX) PO SCH (20:50)
[2017-03-23] MEDS: ENOXAPARIN 30 MG/0.3 ML SYR (J1650) SC SCH (20:50)
[2017-03-23] MEDS: ATORVASTATIN 20 MG TAB PO SCH (20:51)
[2017-03-23 21:15] VITALS: BP 146/58
[2017-03-24 01:55] VITALS: BP 134/61
[2017-03-24 06:00] VITALS: BP 145/65
[2017-03-24] MEDS ORDERED: PREVNAR 13 VACCINE SYRINGE (CPT CODE:90670) IM ONE (09:00)
[2017-03-24 09:45] VITALS: BP 135/61
[2017-03-24] MEDS: ATENOLOL 50 MG TAB PO SCH (09:55)
[2017-03-24] MEDS: LOSARTAN 50 MG TAB PO SCH (09:56)
[2017-03-24] MEDS: DOCUSATE SODIUM 100 MG CAP PO SCH ×2 (09:56→20:26)
[2017-03-24] MEDS: hydroCHLOROthiazide 25 MG TAB PO SCH (09:57)
[2017-03-24] MEDS: ASPIRIN 81 MG ENTERIC TAB PO SCH (11:57)
[2017-03-24 14:00] VITALS: BP 149/70
[2017-03-24 18:00] VITALS: BP 136/60
[2017-03-24] MEDS: PANTOPRAZOLE 40MG TAB (PROTONIX) PO SCH (20:26)
[2017-03-24] MEDS: ATORVASTATIN 20 MG TAB PO SCH (20:27)
[2017-03-24] MEDS: ENOXAPARIN 30 MG/0.3 ML SYR (J1650) SC SCH (20:27)
[2017-03-24 22:00] VITALS: BP 143/64
[2017-03-25 02:00] VITALS: BP 120/66
[2017-03-25 06:00] VITALS: BP 148/68
[2017-03-25] MEDS ORDERED: NORCOTAB PO (08:46)
[2017-03-25] MEDS: ASPIRIN 81 MG ENTERIC TAB PO SCH (09:29)
[2017-03-25] MEDS: DOCUSATE SODIUM 100 MG CAP PO SCH (09:29)
[2017-03-25] MEDS: hydroCHLOROthiazide 25 MG TAB PO SCH (09:29)
[2017-03-25 09:30] VITALS: BP 148/63
[2017-03-25] MEDS: LOSARTAN 50 MG TAB PO SCH (09:30)
[2017-03-25] MEDS: ATENOLOL 50 MG TAB PO SCH (09:30)
[2017-03-25 10:00] VITALS: BP 143/65
--- NOTE | 2017-04-12 20:17 | DSES ---
DATE OF ADMISSION: 03/22/2017 DATE OF DISCHARGE: 03/25/2017 ADMISSION DIAGNOSIS: Ventral incisional hernia. HISTORY OF PRESENT ILLNESS: The patient is a 81-year-old woman who has had a ventral incisional hernia for at least several years. She had undergone a repair of abdominal aortic aneurysm through a left-sided oblique incision in the abdomen and flank. This was repaired back in 2007. She developed a hernia through the incision several years later. This had been followed since at least November 2013. She was asymptomatic for several years but then in November 2016, was seen in the emergency department for an episode of abdominal discomfort. She had a second episode of abdominal pain in December 2016, which sounded consistent with a partial or transient incarceration of her hernia, possibly with a partial intestinal obstruction. She followed up in the office where examination confirmed a 10-12 cm bulge just above the medial aspect of her oblique scar in the left midabdomen. She is now being admitted to undergo repair of her hernia. Because of the size of the hernia, she will have this performed as an open procedure with prosthetic mesh for the repair. HOSPITAL COURSE: The patient was admitted on the morning of March 22. She underwent an open repair of her left-sided ventral incisional hernia with Parietex mesh with lysis of adhesions. She was found to have an approximately 3 cm x 5 cm abdominal wall defect. The repair was performed using Parietex mesh for reinforcement. A drain was left in the subcutaneous space at the conclusion of her procedure. The patient had an uncomplicated postoperative course. She remained hemodynamically stable and afebrile during her postoperative course. She had some minimal serosanguineous fluid from her drain. The patient lives alone and so she was kept in the hospital a little longer than if she had a better support system at home. On 03/24, it was noted that she had coughed up some sputum and her cough had improved following this. She did have some flatus but no bowel movement at that time, but was tolerating a diet adequately. She continued to improve appropriately and her drain was removed and she was discharged home on March 25, 2017. FINAL DIAGNOSES: 1. Ventral incisional hernia. 2. Atherosclerotic coronary artery disease status post bypass grafting. 3. Hypertension. 4. Hyperlipidemia. 5. Chronic kidney disease stage IV. 6. Gastroesophageal reflux and heartburn. 7. Status post abdominal aortic aneurysm repair. PROCEDURE PERFORMED: Open repair of left-sided ventral incisional hernia with lysis of adhesions and use of Parietex mesh. DISPOSITION: She was discharged home on 03/25/2017. She was advised against any strenuous activity or lifting greater than 30 pounds. She was to take a regular diet. She was to leave her bandage on until March 26 and then was to remove the bandage and wash her drain site gently and apply a small dressing daily until this had healed. She could shower starting March 26. She was take her usual medications including aspirin, atenolol, atorvastatin, esomeprazole, Hyzaar, magnesium oxide , multivitamin and vitamin D as before admission. She was provided a prescription for [place] tablets, total number of eight to take on an as-needed basis for pain. She was to call for any problems and was to followup in my office on April 15 at 08:30 in the morning. ROSY
== END 2017-03-25 11:55 | disposition home or self-care (01) | DRG 355 ==
LOC: INTOOBSV 07:49 → M OR 07:49 → OBSVTOIN 12:30 → M MSPAV 13:52
PROVIDERS: ADMIT Surgery; ATTEND Surgery
PROC: 0WUF0JZ Supplement Abdominal Wall with Synthetic Substitute, Open Approach (ICD-10-PCS; 2017-03-22)
PROC: 0WQF0ZZ Repair Abdominal Wall, Open Approach (ICD-10-PCS; principal; 2017-03-22 09:30)
DX: K43.2 Incisional hernia without obstruction or gangrene (principal); I12.9 Hypertensive chronic kidney disease with stage 1 through stage 4 chronic kidney disease, or unspecified chronic kidney disease; E78.5 Hyperlipidemia, unspecified; I25.10 Atherosclerotic heart disease of native coronary artery without angina pectoris; N18.9 Chronic kidney disease, unspecified; Z85.828 Personal history of other malignant neoplasm of skin; Z95.1 Presence of aortocoronary bypass graft; Z98.51 Tubal ligation status; K21.9 Gastro-esophageal reflux disease without esophagitis

== ENCOUNTER → 2018-01-10 | Outpatient (REF) | payer OTHER ==
[2018-01-10 18:19] LABS: ALBUMIN 3.9 GM/DL (3.2-5.2); ALBUMIN/GLOBULIN RATIO 1.11 (1.00-1.93); ALKALINE PHOSPHATASE 105 U/L (45-117); ALT/SGPT 24 U/L (12-78); ANION GAP 5 MEQ/L (8-16); AST/SGOT 28 U/L (7-37); BILIRUBIN,TOTAL 0.4 MG/DL (0.2-1.0); BLOOD UREA NITROGEN 26 MG/DL (7-18); CALCIUM LEVEL 9.3 MG/DL (8.8-10.2); CARBON DIOXIDE LEVEL 29 MEQ/L (21-32); CHLORIDE LEVEL 109 MEQ/L (98-107); CREATININE FOR GFR 2.02 MG/DL (0.55-1.30); GLUCOSE, FASTING 104 MG/DL (70-100); POTASSIUM SERUM 4.9 MEQ/L (3.5-5.1); SODIUM LEVEL 143 MEQ/L (136-145); TOTAL PROTEIN 7.4 GM/DL (6.4-8.2)
[2018-01-10 18:22] LABS: ESTIMATED AVERAGE GLUCOSE 114 MG/DL (60-110); HEMOGLOBIN A1c 5.6 %
== END ==
LOC: M LAB REF 17:37
DX: Z00.00 Encounter for general adult medical examination without abnormal findings (principal); I25.10 Atherosclerotic heart disease of native coronary artery without angina pectoris; E11.9 Type 2 diabetes mellitus without complications; E11.21 Type 2 diabetes mellitus with diabetic nephropathy; E78.4 Other hyperlipidemia; I10 Essential (primary) hypertension
CPT/HCPCS: 80053

== ENCOUNTER → 2018-03-13 | Outpatient (REF) | payer OTHER ==
[2018-03-13 14:19] LABS: FERRITIN 221 NG/ML (8-252); IRON (FE) 108 UG/DL (50-170); PERCENT SATURATION 34.7 % (13.2-45.0); TOTAL IRON BINDING CAPACITY 311 UG/DL (250-450)
== END ==
LOC: M LAB REF 13:40
DX: N18.9 Chronic kidney disease, unspecified (principal); D63.1 Anemia in chronic kidney disease
CPT/HCPCS: 83550

== ENCOUNTER → 2018-04-23 | Outpatient (CLI) | payer OTHER | LOC: M RAD 08:08 | DX: I72.2 Aneurysm of renal artery (principal); I65.23 Occlusion and stenosis of bilateral carotid arteries | CPT/HCPCS: 76775 ==

== ENCOUNTER → 2018-09-18 | Outpatient (REF) | payer MEDICARE, OTHER ==
[~2018-09-18] MED LIST changes: +NORCOTAB PO
[2018-09-18 14:15] LABS: FOLATE > 24.0 NG/ML; VITAMIN B12 LEVEL 543 PG/ML
[2018-09-20 08:09] LABS: Methylmalonic Acid 451 nmol/L (0-378)
== END ==
LOC: M LAB REF 13:05
PROVIDERS: ATTEND Internal Medicine Nephrology
DX: D53.1 Other megaloblastic anemias, not elsewhere classified (principal)

== ENCOUNTER → 2018-11-28 | Outpatient (CLI) | payer MEDICARE ==
--- NOTE | 2018-11-28 09:10 | REP ---
Abdominal aortic ultrasound: 11/28/2018 Comparison 04/23/2018. Clinical history. Prior abdominal aortic aneurysm repair 2007. Scanning of the abdominal aorta shows diameters as follows: Proximal aorta: 1.9 cm AP, 2.4 cm transverse. Renal artery level: 3.3 cm AP, 2.6 cm transverse. Mid aorta: 2.9 cm AP, 2.7 cm transverse. Distal aorta: 2.9 cm AP, 2.7 cm transverse. Just below the main renal artery takeoffs and prior to the graft, there is a mild stenosis. Velocities above this are 59 cm/s, within the stenosis 138 cm/s and distal to it 74 cm/s. There is a stable abdominal aortic aneurysm repair. No evidence of a leak. The right common iliac artery is 1.6 x 1.2 cm, left 1.3 x 1.2 cm in greatest diameters. IMPRESSION: 1. Status post abdominal aortic aneurysm repair with mild stenosis at the infrarenal region, stable. No significant or new finding. No evidence of a leak. 2. Iliac arteries unremarkable. Electronically Signed by Enoc Acuna MD 11/28/2018 06:23 P
--- NOTE | 2018-11-28 09:34 | REP ---
CAROTID DUPLEX ULTRASOUND: 11/28/2018. Comparison: 04/23/2018. Clinical history: Read stenosis, follow-up. Findings: Standard duplex Doppler techniques were utilized. The right common carotid artery shows some mild mixed plaque distally and less plaque more proximally. Plaque in the bulb and extending into both ICA and ECA. Greatest amount of plaque is posteriorly in the bulb at the origin of the ICA. The left CCA also shows some mixed plaque distally and at the bulb. This is seen extending to the proximal ICA, moderate in extent. Peak velocities: CCA systolic: Right 0.72 M/S left 0.78 M/S ICA systolic: Right 1.06 M/S, left 1.31 M/S ICA diastolic: Right 0.25 M/S, left 0.29 M/S ECA systolic: Right 1.41 M/S, left 0.85 M/S ICA/CCA ratio: Right 1.47, left 1.67. Cranial direction of flow seen in both vertebral arteries. The Doppler waveform analysis shows mild spectral broadening without filling of the systolic window on the right or left side. Impression: 1. There is bilateral atherosclerotic plaque at the bulbs and proximal ICA left greater than right. By velocity criteria greater than 50% on the left, less than 50% on the right. Regardless velocities have increased since the previous study where there were 0.89 and 1.07 M/S respectively. Although there is progressive disease by velocities and moderate amounts of calcific and mixed plaque, the right shows no hemodynamically significant lesion. The left progressed but still in the 50-70% range. Electronically Signed by Enoc Acuna MD 11/28/2018 06:30 P
== END ==
LOC: M RAD 06:34
PROVIDERS: ATTEND Surgery Vascular Surgery
DX: I65.23 Occlusion and stenosis of bilateral carotid arteries (principal); I70.1 Atherosclerosis of renal artery

== ENCOUNTER → 2019-01-07 | Outpatient (REF) | payer MEDICARE ==
[~2019-01-07] MED LIST changes: +HYDR-3715 PO; -NORCOTAB PO
== END ==
LOC: M LAB REF 19:42
PROVIDERS: ATTEND Surgery
DX: D04.5 Carcinoma in situ of skin of trunk (principal)

== ENCOUNTER → 2019-03-27 | Outpatient (REF) | payer MEDICARE ==
[2019-03-27 13:42] LABS: FOLATE > 24.0 NG/ML; VITAMIN B12 LEVEL 1045 PG/ML
[2019-03-29 14:38] LABS: Methylmalonic Acid 306 nmol/L (0-378)
== END ==
LOC: M LAB REF 13:08
PROVIDERS: ATTEND Internal Medicine Nephrology
DX: D53.1 Other megaloblastic anemias, not elsewhere classified (principal)

== ENCOUNTER → 2019-05-26 | Outpatient (REF) | payer MEDICARE ==
[2019-05-26 11:00] LABS: CHOLESTEROL RISK RATIO 2.648 (<5)
== END ==
LOC: M LABDRAW1 08:49
PROVIDERS: ATTEND Family Medicine
DX: B37.3 Candidiasis of vulva and vagina (principal); E78.49 Other hyperlipidemia

== ENCOUNTER → 2019-06-18 | Outpatient (CLI) | payer MEDICARE ==
--- NOTE | 2019-06-18 11:01 | REP ---
CAROTID ULTRASOUND: Real-time ultrasound evaluation and duplex Doppler interrogation of the extracranial carotid vasculature is performed. Comparison 11/28/2018. There is again mild to moderate scattered plaquing and narrowing at the carotid bulbs extending into the internal and external carotid arteries bilaterally. There is again mild elevation of the peak systolic velocity in the left internal carotid artery with no elevation of the peak systolic velocity in the right internal carotid artery. There is normal direction of flow in both vertebral arteries. RIGHT LEFT Peak systolic velocity ICA 102.5 cm/s 127.9 cm/s End diastolic velocity ICA 25.8 cm/s 30.9 cm/s Peak systolic velocity CCA 88.4 cm/s 97.8 cm/s Peak systolic velocity ECA 169.6 cm/s 60.6 cm/s ICA/CCA ratio 1.16 1.31 IMPRESSION: No significant change when compared to the prior study of 11/28/2018. Mild to moderate scattered plaquing and narrowing bilaterally with mild elevation of the peak systolic velocity in the left ICA suggesting stenosis mildly greater than 50%. Luminal narrowing right ICA less than 50%. Electronically Signed by Leon Gonzales MD 06/18/2019 05:54 P
== END ==
LOC: M RAD 07:02
PROVIDERS: ATTEND Surgery Vascular Surgery
DX: I65.23 Occlusion and stenosis of bilateral carotid arteries (principal)

== ENCOUNTER → 2020-03-21 | Outpatient (CLI) | payer MEDICARE ==
--- NOTE | 2020-03-21 10:08 | REP ---
CAROTID ULTRASOUND: Real-time ultrasound evaluation and duplex Doppler interrogation of the extracranial carotid vasculature is performed. There is moderate plaquing seen in both common carotid arteries and carotid bulbs extending into the internal carotid arteries. There is mild elevation of the peak systolic velocity and the right internal carotid artery suggesting stenosis 50-79%. Luminal narrowing in the left internal carotid artery is less than 50%. There is normal direction of flow in both vertebral arteries. RIGHT LEFT Peak systolic velocity ICA 152.7 cm/s 99.8 cm/s End diastolic velocity ICA 26.6 cm/s 15.9 cm/s Peak systolic velocity CCA 99.2 cm/s 110.5 cm/s Peak systolic velocity ECA 231.4 cm/s 156.3 cm/s ICA/CCA ratio 1.5 0.9 IMPRESSION: Elevated peak systolic velocity in the right internal carotid artery. Moderate bilateral plaquing. Findings are consistent with stenosis of the right ICA between 50-79%. Luminal narrowing left ICA less than 50%. Electronically Signed by Leon Gonzales MD 03/21/2020 11:28 A
--- NOTE | 2020-03-21 10:13 | REP ---
ULTRASOUND ABDOMINAL AORTA: Real-time sonographic evaluation of the abdominal aorta are performed and compared to a prior study of 11/28/2018. Abdominal aortic stent graft is again noted from the level of the renal arteries to just above the bifurcation. Maximum AP diameter of the proximal abdominal aorta is 1.6 cm, at the level of the renal artery is 2.2 cm, mid aspect 2.6 cm and distally 2.3 cm. Common iliac arteries are normal in caliber both measuring 0.9 cm in AP dimension. Peak systolic velocity of the abdominal aorta proximally is 87.5 cm/s, at the level of the renal arteries 105.0 cm/s, just distal to the origin of the stent graft 194.1 cm/s, mid aspect of the stent 121.1 cm/s, and distally 57.5 cm/s. Findings suggest mild stenosis of the abdominal aorta in the region of the origin of the stent graft. IMPRESSION: No significant change compared to prior study. There is again mild elevation of the peak systolic velocity of the abdominal aorta in the region of the origin of the stent graft of the distal abdominal aorta. Findings again suggest mild stenosis at that level, unchanged. Electronically Signed by Leon Gonzales MD 03/21/2020 11:29 A
== END ==
LOC: M RAD 07:35
PROVIDERS: ATTEND Physician Assistant
DX: I71.4 Abdominal aortic aneurysm, without rupture (principal); I65.21 Occlusion and stenosis of right carotid artery

== ENCOUNTER → 2020-07-08 | Outpatient (REF) | payer MEDICARE ==
[~2020-07-08] MED LIST changes: -ASPI81TA85 PO; +ASPI81TA86 PO
[2020-07-08 19:02] LABS: CHOLESTEROL RISK RATIO 2.596 (<5)
== END ==
LOC: M LAB REF 16:57
PROVIDERS: ATTEND Family Medicine
DX: N18.4 Chronic kidney disease, stage 4 (severe) (principal); E11.9 Type 2 diabetes mellitus without complications; I12.9 Hypertensive chronic kidney disease with stage 1 through stage 4 chronic kidney disease, or unspecified chronic kidney disease; E78.49 Other hyperlipidemia; Z00.00 Encounter for general adult medical examination without abnormal findings

== ENCOUNTER → 2020-10-11 | Outpatient (REF) | payer MEDICARE ==
[2020-10-11 17:48] LABS: PERCENT SATURATION 41.1 % (13.2-45.0)
== END ==
LOC: M LAB REF 16:56
PROVIDERS: ATTEND Nurse Practitioner Family
DX: D50.9 Iron deficiency anemia, unspecified (principal)

== ENCOUNTER → 2020-12-15 | Outpatient (CLI) | payer MEDICARE ==
--- NOTE | 2020-12-15 10:00 | REP ---
INDICATION: OCCLUSION/STENOSIS DARIEN CAROTID ARTERIES COMPARISON: 03/21/2020 TECHNIQUE: Gonzales scale and color Doppler evaluation using linear high frequency transducer Findings: FINDINGS: Two-dimensional gonzales scale and color images demonstrate moderate amounts of mixed atheromatous plaquing (left greater than right) . Color Doppler interrogation demonstrates arterial wave patterns with moderate spectral broadening. Normal flow direction is appreciated in the bilateral vertebral arteries. ICA peak systolic velocity: Right 90.5 cm/s; Left 167.6 cm/s ICA diastolic velocity: Right 17.4 cm/s; Left 33.9 cm/s ECA peak systolic velocity: Right 210 cm/s; Left 95.1 cm/s CCA peak systolic velocity: Right 79.6 cm/s; Left 109.1 cm/s ICA/CCA ratio: Right cm/s; Left 1.13 1.54 cm/s IMPRESSION: 1. Narrowing through the left internal carotid artery at the 50-69% range. 2. Narrowing through the right internal carotid artery at the less than 50% range. <Electronically signed by Scot Roberson > 12/15/20 [id number]
== END ==
LOC: M RAD 08:54
PROVIDERS: ATTEND Surgery Vascular Surgery
DX: I65.23 Occlusion and stenosis of bilateral carotid arteries (principal)

== ENCOUNTER → 2021-02-25 | Outpatient (CLI) | payer MEDICARE ==
[~2021-02-25] MED LIST changes: +ASPI81TA26 PO; +B-12100010 PO; +D31000TA2 PO; +HYDR12.55
== END ==
LOC: M LABSMTC 11:17
PROVIDERS: ATTEND Anesthesiology
DX: Z01.812 Encounter for preprocedural laboratory examination (principal); Z20.822 Contact with and (suspected) exposure to COVID-19

== ENCOUNTER 2021-03-02 10:17 | Day surgery (SDC) | payer MEDICARE ==
[~2021-03-02] VITALS: Ht 165.1 cm; Wt 79.7 kg
[~2021-03-02 10:17] MED LIST changes: +LR 1,000 ML IV ONE; +dexameTHASONE 4 MG/ML 1ML VIAL (J1100 PER 1MG) IV ONE
[2021-03-02] MEDS ORDERED: LIDOCAINE 2% 100MG/5ML SDV (FOR ANES.) As Ordered ONE (10:36)
[2021-03-02] MEDS ORDERED: ONDANSETRON 4MG/2ML VIAL As Ordered ONE (10:36)
[2021-03-02] MEDS ORDERED: propofoL 200 MG/20 ML VIAL As Ordered ONE (10:36)
[2021-03-02] MEDS ORDERED: fentaNYL 100 MCG/2 ML INJECTION (J3010) As Ordered ONE (10:36)
[2021-03-02] MEDS ORDERED: BACITRACIN OINTMENT 30GM TUBE As Ordered ONE (11:59)
[2021-03-02] MEDS ORDERED: LIDOCAINE W/EPINEPHRINE 1% 20ML VIAL As Ordered ONE (11:59)
[2021-03-02] MEDS ORDERED: dexameTHASONE 4 MG/ML 1ML VIAL (J1100 PER 1MG) As Ordered ONE (12:37)
[2021-03-02 13:50] VITALS: BP 154/67
--- NOTE | 2021-03-10 14:29 | RO ---
OPERATIVE NOTE DATE OF OPERATION: 03/02/2021 PREOPERATIVE DIAGNOSIS: Left cheek cutaneous lesion. POSTOPERATIVE DIAGNOSIS: Left cheek cutaneous lesion. PROCEDURE: Excision of left cheek lesion 2 x 1.5 cm. SURGEON: Herbert Meier MD DAIRY FARM OPERATOR: ANESTHESIA: Local sedation. CLINICAL PREAMBLE: This 85-year-old woman had lesion of the left cheek for 2-3 months. It is nonhealing and nonpigmented. Management options including excision of lesion have been discussed. The patient understood and consented to the procedure. DESCRIPTION OF PROCEDURE: The patient was identified in preoperative holding area and brought to operating room in stable condition. In the supine position on the operating table, the patient received local sedation. The left cheek was prepped and draped in usual fashion for the procedure. The lesion was outlined to include at least 0.5 cm margin around the nonhealing cutaneous lesion, total of 2 x 1.5 cm area was successfully outlined. Margin was infiltrated with 1% Lidocaine with 1:100,000 Epinephrine. Incision was made through the skin down to the subcutaneous tissue. The entire mass was then excised en bloc. 12 o'clock position was in the medial aspect of the lesion which was marked with two sutures in and 3 o'clock position is the superior portion of the lesion which was marked with one end of suture. The specimen was then sent to pathology for microscopic examination. Hemostasis was achieved. Closure was achieved using 5-0 Prolene suture. Bacitracin was applied to the incision site. At the end of the procedure sponge and instrument counts were correct. No complications. Estimated blood loss less than 1 mL. Local sedation was reversed and the patient was awakened and sent to the recovery room in stable condition.
== END 2021-03-02 13:55 | disposition home or self-care (01) ==
LOC: M SDC 10:17
PROVIDERS: ATTEND Otolaryngology
DX: C44.329 Squamous cell carcinoma of skin of other parts of face (principal); D64.9 Anemia, unspecified; E78.5 Hyperlipidemia, unspecified; I25.10 Atherosclerotic heart disease of native coronary artery without angina pectoris; I25.2 Old myocardial infarction; I12.9 Hypertensive chronic kidney disease with stage 1 through stage 4 chronic kidney disease, or unspecified chronic kidney disease; I71.4 Abdominal aortic aneurysm, without rupture; K44.9 Diaphragmatic hernia without obstruction or gangrene; R94.31 Abnormal electrocardiogram [ECG] [EKG]; I08.0 Rheumatic disorders of both mitral and aortic valves; N18.4 Chronic kidney disease, stage 4 (severe); R06.83 Snoring; Z78.0 Asymptomatic menopausal state; Z79.82 Long term (current) use of aspirin; Z79.899 Other long term (current) drug therapy; Z85.828 Personal history of other malignant neoplasm of skin; Z91.048 Other nonmedicinal substance allergy status; Z95.1 Presence of aortocoronary bypass graft; Z98.51 Tubal ligation status
CPT/HCPCS: 11642; 88305; J1100; J2405; J3010

== ENCOUNTER → 2021-04-11 | Outpatient (REF) | payer MEDICARE ==
[~2021-04-11] MED LIST changes: -LR 1,000 ML IV ONE; -dexameTHASONE 4 MG/ML 1ML VIAL (J1100 PER 1MG) IV ONE
== END ==
LOC: M LAB REF 18:53
PROVIDERS: ATTEND Nurse Practitioner Family
DX: E83.42 Hypomagnesemia (principal)

== ENCOUNTER → 2021-05-29 | Outpatient (CLI) | payer MEDICARE ==
[2021-05-29 11:06] LABS: CHOLESTEROL RISK RATIO 2.957 (<5)
[2021-05-29 15:15] LABS: HEMOGLOBIN A1c 5.8 %
== END ==
LOC: M PLALAB 09:00
PROVIDERS: ATTEND Family Medicine
DX: I35.1 Nonrheumatic aortic (valve) insufficiency (principal); I77.9 Disorder of arteries and arterioles, unspecified; N18.4 Chronic kidney disease, stage 4 (severe); I11.9 Hypertensive heart disease without heart failure; I25.10 Atherosclerotic heart disease of native coronary artery without angina pectoris; E55.9 Vitamin D deficiency, unspecified

== ENCOUNTER → 2021-07-12 | Outpatient (REF) | payer MEDICARE | LOC: M LAB REF 12:59 | PROVIDERS: ATTEND Nurse Practitioner Family | DX: E83.42 Hypomagnesemia (principal) ==

== ENCOUNTER → 2021-10-12 | Outpatient (REF) | payer MEDICARE ==
[2021-10-12 13:36] LABS: PERCENT SATURATION 21.9 % (13.2-45.0)
== END ==
LOC: M LAB REF 13:08
PROVIDERS: ATTEND Nurse Practitioner Family
DX: D50.9 Iron deficiency anemia, unspecified (principal)

== ENCOUNTER → 2021-11-17 | Outpatient (CLI) | payer MEDICARE ==
[~2021-11-17] MED LIST changes: +ATOR40TA75; -D31000TA2 PO; +GNP250TA9 PO; +LOSA50TA28; +MONT10TA97; +VITA100093 PO
== END ==
LOC: M LABSMTC 10:37
PROVIDERS: ATTEND Anesthesiology
DX: Z01.812 Encounter for preprocedural laboratory examination (principal); Z20.822 Contact with and (suspected) exposure to COVID-19

== ENCOUNTER 2021-11-22 11:27 | Observation (INO) | payer MEDICARE ==
[2021-11-22] VITALS (7 sets, daily range): BP systolic 126–182; BP diastolic 55–85
[~2021-11-22] VITALS: Ht 165.1 cm; Wt 79.5 kg
[~2021-11-22 11:27] MED LIST changes: -ATOR40TA75; +ATOR40TA75 PO; -HYDR12.55; +HYDR12.55 PO; -LOSA50TA28; +LOSA50TA28 PO; +LR 1,000 ML IV ONE; +dexameTHASONE 4 MG/ML 1ML VIAL (J1100 PER 1MG) IV ONE
[2021-11-22] MEDS ORDERED: SUGAMMADEX SODIUM 500 MG/5 ML VIAL (BRIDION) As Ordered ONE (13:11)
[2021-11-22] MEDS ORDERED: dexameTHASONE 4 MG/ML 1ML VIAL (J1100 PER 1MG) As Ordered ONE (13:11)
[2021-11-22] MEDS ORDERED: ROCURONIUM BROMIDE 50 MG/5 ML VIAL As Ordered ONE (13:11)
[2021-11-22] MEDS ORDERED: ACETAMINOPHEN 1000MG 100ML IV BTL (OFIRMEV) (J0131 PER 10MG) As Ordered ONE (13:11)
[2021-11-22] MEDS ORDERED: propofoL 200 MG/20 ML VIAL As Ordered ONE (13:11)
[2021-11-22] MEDS ORDERED: LIDOCAINE 2% 100MG/5ML SDV (FOR ANES.) As Ordered ONE (13:11)
[2021-11-22] MEDS ORDERED: ONDANSETRON 4MG/2ML VIAL As Ordered ONE (13:11)
[2021-11-22] MEDS ORDERED: MIDAZOLAM INJ 2MG/2ML VIAL (J2250 PER 1MG) As Ordered ONE (13:11)
[2021-11-22] MEDS ORDERED: fentaNYL 100 MCG/2 ML INJECTION As Ordered ONE (13:12)
[2021-11-22] MEDS ORDERED: LIDOCAINE W/EPINEPHRINE 1% 20ML VIAL As Ordered ONE (16:07)
[2021-11-22] MEDS ORDERED: BACITRACIN OINTMENT 30GM TUBE As Ordered ONE (16:07)
[2021-11-22] MEDS ORDERED: LACRILUBE (AKWA TEARS) OPHTH OINT 3.5 GM As Ordered ONE (16:38)
[2021-11-22] MEDS ORDERED: LABETALOL 100MG/20ML VIAL As Ordered ONE (19:06)
[2021-11-22] MEDS: LABETALOL 100MG/20ML VIAL IV PRN ×5 (19:08→19:52)
[2021-11-22] MEDS ORDERED: fentaNYL 100 MCG/2 ML INJECTION IV PRN (19:10)
[2021-11-22] MEDS ORDERED: ONDANSETRON 4MG/2ML VIAL IV PRN (19:10)
[2021-11-22] MEDS ORDERED: LR 1,000 ML IV SCH (19:10)
[2021-11-22] MEDS: HYDROMORPHONE HCL 0.5 MG/ 0.5 ML SYRINGE (J1170 PER 1) IV PRN ×2 (19:25→19:35)
[2021-11-22] MEDS ORDERED: ATEN50TA2 PO (20:11)
[2021-11-22] MEDS ORDERED: HOME MED LIST COMPLETE! XX SCH (20:15)
[2021-11-22] MEDS ORDERED: PROMETHAZINE INJ 25 MG/ML VIAL (J2550) IV PRN (20:25)
[2021-11-22] MEDS ORDERED: ACETAMINOPHEN TAB 650MG DOSE (2X325MG) PO PRN (20:50)
[2021-11-22 21:38] LABS: BASO % 0.2 % (0.0-1.0); EOS % 0.1 % (0.0-3.0); HEMATOCRIT 35.1 % (36.0-47.0); HEMOGLOBIN 11.4 g/dl (12.0-15.5); LYMPH # 0.5 10^3/uL (1.5-5.0); LYMPH % 6.1 % (24.0-44.0); MEAN CORPUSCULAR HEMOGLOBIN 33.1 pg (27.0-33.0); MEAN CORPUSCULAR HGB CONC 32.5 g/dl (32.0-36.5); MONO # 0.2 10^3/uL (0.0-0.8); MONO % 2.3 % (2.0-8.0); NEUTROPHILS # 7.8 10^3/uL (1.5-8.5); NEUTROPHILS % 89.6 % (36.0-66.0); PLATELET COUNT, AUTOMATED 106 10^3/uL (150-450); RED BLOOD COUNT 3.44 10^6/uL (4.00-5.40); WHITE BLOOD COUNT 8.7 10^3/uL (4.0-10.0)
[2021-11-22] MEDS ORDERED: hydrALAZINE 20MG/ML 1ML VIAL (J0360 PER 20MG) IV PRN (21:40)
[2021-11-22] MEDS: LOSARTAN 50MG TABLET PO SCH (21:51)
[2021-11-22] MEDS: BACITRACIN OINTMENT 30GM TUBE TOP SCH (21:51)
[2021-11-22] MEDS: hydroCHLOROthiazide 12.5 MG CAPSULE PO SCH (21:52)
[2021-11-22] MEDS: LR 1,000 ML IV SCH (21:52)
[2021-11-22 21:59] LABS: CALCIUM LEVEL 9.2 MG/DL (8.8-10.2); CREATININE FOR GFR 1.89 MG/DL (0.55-1.30); GLOMERULAR FILTRATION RATE 26.7 (>32); POTASSIUM SERUM 3.9 MEQ/L (3.5-5.1)
[2021-11-23] VITALS (17 sets, daily range): BP systolic 120–171; BP diastolic 59–74; O2SAT 95–100
[2021-11-23 05:38] LABS: BASO % 0.1 % (0.0-1.0); HEMATOCRIT 32.9 % (36.0-47.0); HEMOGLOBIN 10.7 g/dl (12.0-15.5); LYMPH # 0.4 10^3/uL (1.5-5.0); LYMPH % 5.7 % (24.0-44.0); MEAN CORPUSCULAR HGB CONC 32.5 g/dl (32.0-36.5); MEAN CORPUSCULAR VOLUME 101.5 fl (80.0-96.0); MONO # 0.2 10^3/uL (0.0-0.8); MONO % 2.2 % (2.0-8.0); NEUTROPHILS # 6.1 10^3/uL (1.5-8.5); NEUTROPHILS % 91.4 % (36.0-66.0); PLATELET COUNT, AUTOMATED 111 10^3/uL (150-450); RED BLOOD COUNT 3.24 10^6/uL (4.00-5.40); WHITE BLOOD COUNT 6.7 10^3/uL (4.0-10.0)
[2021-11-23 06:11] LABS: BILIRUBIN,TOTAL 0.3 MG/DL (0.2-1.0); CALCIUM LEVEL 9.1 MG/DL (8.8-10.2); CREATININE FOR GFR 1.92 MG/DL (0.55-1.30); GLOMERULAR FILTRATION RATE 26.2 (>32); MAGNESIUM LEVEL 1.7 MG/DL (1.8-2.4); PHOSPHORUS LEVEL 3.1 MG/DL (2.5-4.9); POTASSIUM SERUM 4.7 MEQ/L (3.5-5.1); TOTAL PROTEIN 6.8 GM/DL (6.4-8.2)
[2021-11-23] MEDS ORDERED: MAG SULF 1GM/100ML (MAG RUN) 1 GM in IV 1 EA IV ONE (07:00)
[2021-11-23] MEDS: LR 1,000 ML IV SCH (08:35)
[2021-11-23] MEDS ORDERED: CYANOCOBALAMIN 500 MCG TAB PO SCH (09:00)
[2021-11-23] MEDS ORDERED: ATORVASTATIN 20 MG TAB PO SCH (09:00)
[2021-11-23] MEDS ORDERED: ASPIRIN 81MG ENTERIC TABLET PO SCH (09:00)
[2021-11-23] MEDS ORDERED: VITAMIN D 1,000 INTERNATIONAL UNITS TABLET PO SCH (09:00)
[2021-11-23] MEDS: BACITRACIN OINTMENT 30GM TUBE TOP SCH (09:31)
[2021-11-23] MEDS: LOSARTAN 50MG TABLET PO SCH (09:33)
[2021-11-23] MEDS: hydroCHLOROthiazide 12.5 MG CAPSULE PO SCH (09:34)
[2021-11-23] MEDS ORDERED: BACI50OI TOP (09:48)
[2021-11-23] MEDS ORDERED: amLODIPine 5 MG TAB PO ONE (13:30)
== END 2021-11-23 14:09 | disposition home or self-care (01) ==
LOC: M SDC 11:27 → M PCU 20:07
PROVIDERS: ADMIT Family Medicine; ATTEND Otolaryngology
DX: C44.319 Basal cell carcinoma of skin of other parts of face (principal); C44.311 Basal cell carcinoma of skin of nose; D04.39 Carcinoma in situ of skin of other parts of face; L85.8 Other specified epidermal thickening; I16.0 Hypertensive urgency; I25.10 Atherosclerotic heart disease of native coronary artery without angina pectoris; N18.30 Chronic kidney disease, stage 3 unspecified; I12.9 Hypertensive chronic kidney disease with stage 1 through stage 4 chronic kidney disease, or unspecified chronic kidney disease; E78.5 Hyperlipidemia, unspecified; Z79.82 Long term (current) use of aspirin; Z79.899 Other long term (current) drug therapy
CPT/HCPCS: 11641; 11642; 36415; 80048; 80053; 83735; 84100; 85025; 88305; 96374; G0378; J0131; J1100; J1170; J2250; J2405; J3010; J3475

== ENCOUNTER → 2022-01-01 | Outpatient (CLI) | payer MEDICARE ==
[~2022-01-01] MED LIST changes: +ATEN50TA2 PO; +BACI50OI TOP; -LR 1,000 ML IV ONE; -dexameTHASONE 4 MG/ML 1ML VIAL (J1100 PER 1MG) IV ONE
[2022-01-01 17:01] LABS: HEMATOCRIT 33.3 % (36.0-47.0); HEMOGLOBIN 10.8 g/dl (12.0-15.5); MEAN CORPUSCULAR HEMOGLOBIN 33.1 pg (27.0-33.0); MEAN CORPUSCULAR HGB CONC 32.4 g/dl (32.0-36.5); MEAN CORPUSCULAR VOLUME 102.1 fl (80.0-96.0); PLATELET COUNT, AUTOMATED 118 10^3/uL (150-450); RED BLOOD COUNT 3.26 10^6/uL (4.00-5.40)
[2022-01-01 17:27] LABS: CALCIUM LEVEL 9.1 MG/DL (8.8-10.2); CREATININE FOR GFR 2.12 MG/DL (0.55-1.30); GLOMERULAR FILTRATION RATE 23.4 (>32); POTASSIUM SERUM 4.5 MEQ/L (3.5-5.1)
== END ==
LOC: M PLALAB 14:33
PROVIDERS: ATTEND Family Medicine
DX: J98.01 Acute bronchospasm (principal); I35.1 Nonrheumatic aortic (valve) insufficiency; N18.4 Chronic kidney disease, stage 4 (severe); I13.10 Hypertensive heart and chronic kidney disease without heart failure, with stage 1 through stage 4 chronic kidney disease, or unspecified chronic kidney disease; L98.9 Disorder of the skin and subcutaneous tissue, unspecified; D15.1 Benign neoplasm of heart; I25.2 Old myocardial infarction; E78.49 Other hyperlipidemia; Z95.1 Presence of aortocoronary bypass graft; R73.03 Prediabetes; D63.8 Anemia in other chronic diseases classified elsewhere; N25.81 Secondary hyperparathyroidism of renal origin

== ENCOUNTER 2022-01-04 11:26 | Observation (INO) | payer MEDICARE ==
[~2022-01-04] VITALS: Ht 165.1 cm; Wt 74.9 kg
[~2022-01-04 11:26] MED LIST changes: +LIDOCAINE 1% MDV 20ML VIAL SQ PRN; +NS 1,000 ML IV SCH
[2022-01-04] MEDS ORDERED: LIDOCAINE 2% 100MG/5ML SDV (FOR ANES.) As Ordered ONE (11:46)
[2022-01-04] MEDS ORDERED: MIDAZOLAM INJ 2MG/2ML VIAL (J2250 PER 1MG) As Ordered ONE (11:46)
[2022-01-04] MEDS ORDERED: fentaNYL 100 MCG/2 ML INJECTION As Ordered ONE ×2 (11:46→17:03)
[2022-01-04] MEDS ORDERED: propofoL 200 MG/20 ML VIAL As Ordered ONE (11:46)
[2022-01-04] MEDS ORDERED: HYDR12.55 PO (12:08)
[2022-01-04] MEDS ORDERED: LOSA50TA28 PO (12:08)
[2022-01-04] MEDS ORDERED: MAGN250T11 PO (12:08)
[2022-01-04] MEDS ORDERED: THERTAB21 PO (12:08)
[2022-01-04] MEDS ORDERED: ASPI81CH33 PO (12:08)
[2022-01-04] MEDS ORDERED: ATOR40TA75 PO (12:08)
[2022-01-04 13:42] LABS: ALBUMIN 3.5 GM/DL (3.2-5.2); BILIRUBIN,TOTAL 0.3 MG/DL (0.2-1.0); CALCIUM LEVEL 9.4 MG/DL (8.8-10.2); CREATININE FOR GFR 1.95 MG/DL (0.55-1.30); GLOMERULAR FILTRATION RATE 25.8 (>32); POTASSIUM SERUM 4.4 MEQ/L (3.5-5.1); TOTAL PROTEIN 6.8 GM/DL (6.4-8.2)
[2022-01-04] MEDS ORDERED: LIDOCAINE W/EPINEPHRINE 1% 20ML VIAL As Ordered ONE (14:18)
[2022-01-04] MEDS ORDERED: BACITRACIN OINTMENT 30GM TUBE As Ordered ONE (14:20)
[2022-01-04] MEDS ORDERED: ROCURONIUM BROMIDE 50 MG/5 ML VIAL As Ordered ONE (14:23)
[2022-01-04] MEDS ORDERED: LACRILUBE (AKWA TEARS) OPHTH OINT 3.5 GM As Ordered ONE (14:51)
[2022-01-04] MEDS ORDERED: dexameTHASONE 4 MG/ML 1ML VIAL (J1100 PER 1MG) As Ordered ONE (14:58)
[2022-01-04] MEDS ORDERED: ePHEDrine SULFATE 25 MG/5 ML(5MG/ML) SYRINGE As Ordered ONE (15:05)
[2022-01-04] MEDS ORDERED: hydrALAZINE 20MG/ML 1ML VIAL (J0360 PER 20MG) As Ordered ONE (15:21)
[2022-01-04] MEDS ORDERED: ONDANSETRON 4MG/2ML VIAL As Ordered ONE (15:23)
[2022-01-04] MEDS ORDERED: SUGAMMADEX SODIUM 500 MG/5 ML VIAL (BRIDION) As Ordered ONE (15:23)
[2022-01-04] MEDS ORDERED: ONDANSETRON 4MG/2ML VIAL IV PRN (18:25)
[2022-01-04] MEDS ORDERED: ACETAMINOPHEN TAB 650MG DOSE (2X325MG) PO PRN ×2 (18:25→18:35)
[2022-01-04] MEDS ORDERED: METOCLOPRAMIDE INJ 10MG/2ML VIAL (J2765 PER 1) IV PRN (18:25)
[2022-01-04] MEDS ORDERED: LR 1,000 ML IV SCH (18:25)
[2022-01-04] MEDS ORDERED: fentaNYL 100 MCG/2 ML INJECTION IV PRN (18:25)
[2022-01-04] MEDS: LABETALOL 100MG/20ML VIAL IV PRN ×2 (18:33→19:03)
[2022-01-04] MEDS ORDERED: NITR0.4S14 SL (19:11)
[2022-01-04] MEDS ORDERED: HOME MED LIST COMPLETE! XX SCH (19:15)
[2022-01-04] MEDS ORDERED: PROCHLORPERAZINE 10MG/2ML VIAL (J0780 PER 1) IV ONE (20:10)
[2022-01-04 20:50] VITALS: BP 153/79
[2022-01-04 21:20] VITALS: BP 150/69
[2022-01-04 21:50] VITALS: BP 142/71
[2022-01-04 22:50] VITALS: BP 138/87
[2022-01-05] VITALS (9 sets, daily range): BP systolic 145–162; BP diastolic 64–86
[2022-01-05] MEDS ORDERED: ONDANSETRON 4MG/2ML VIAL IV PRN (07:20)
[2022-01-05] MEDS ORDERED: ONDANSETRON 4MG/2ML VIAL As Ordered ONE (07:21)
[2022-01-05 08:38] LABS: BASO % 0.2 % (0.0-1.0); HEMOGLOBIN 10.7 g/dl (12.0-15.5); LYMPH # 0.5 10^3/uL (1.5-5.0); LYMPH % 7.7 % (24.0-44.0); MEAN CORPUSCULAR HEMOGLOBIN 32.4 pg (27.0-33.0); MEAN CORPUSCULAR HGB CONC 31.5 g/dl (32.0-36.5); MONO # 0.3 10^3/uL (0.0-0.8); MONO % 4.7 % (2.0-8.0); NEUTROPHILS # 5.5 10^3/uL (1.5-8.5); NEUTROPHILS % 86.9 % (36.0-66.0); PLATELET COUNT, AUTOMATED 122 10^3/uL (150-450); WHITE BLOOD COUNT 6.3 10^3/uL (4.0-10.0)
[2022-01-05 08:59] LABS: AMYLASE 56 U/L (25-115); LIPASE 167 U/L (73-393)
[2022-01-05 09:00] LABS: CALCIUM LEVEL 9.1 MG/DL (8.8-10.2); CREATININE FOR GFR 1.88 MG/DL (0.55-1.30); GLOMERULAR FILTRATION RATE 26.9 (>32); MAGNESIUM LEVEL 1.9 MG/DL (1.8-2.4); POTASSIUM SERUM 4.6 MEQ/L (3.5-5.1)
[2022-01-05] MEDS ORDERED: ATORVASTATIN 20 MG TAB PO SCH (09:00)
[2022-01-05] MEDS ORDERED: ASPIRIN 81 MG CHEW TABLET PO SCH (09:00)
[2022-01-05] MEDS ORDERED: hydroCHLOROthiazide 12.5 MG CAPSULE PO SCH (09:00)
[2022-01-05] MEDS ORDERED: MULTIVITAMINS/MINERALS THERAP 1 TAB PO SCH (09:00)
[2022-01-05] MEDS ORDERED: LOSARTAN 50MG TABLET PO SCH (09:00)
[2022-01-05] MEDS ORDERED: atenoloL 50 MG TAB PO SCH (09:00)
[2022-01-05 09:05] LABS: CK-MB VALUE MASS 3.4 NG/ML (<3.6); MB/CK RELATIVE INDEX 3.01 (< OR =4)
[2022-01-05] MEDS ORDERED: atenoloL 50 MG TAB PO ONE (11:50)
[2022-01-05] MEDS ORDERED: hydroCHLOROthiazide 12.5 MG CAPSULE PO ONE (11:55)
[2022-01-05] MEDS ORDERED: ATEN100T PO (14:31)
[2022-01-06] MEDS ORDERED: atenoloL 50 MG TAB PO SCH (09:00)
== END 2022-01-05 16:05 | disposition home health service (06) ==
LOC: M SDC 11:26 → UNDOADMOB 11:27 → M ED INP 11:27 → M MS5PR 19:35 → M ED INP 19:35 → UNDODISOB 01-05 16:05
PROVIDERS: ADMIT Internal Medicine; ATTEND Internal Medicine
DX: I97.3 Postprocedural hypertension (principal); R11.0 Nausea; C44.319 Basal cell carcinoma of skin of other parts of face; C44.329 Squamous cell carcinoma of skin of other parts of face; I25.2 Old myocardial infarction; I25.10 Atherosclerotic heart disease of native coronary artery without angina pectoris; I34.9 Nonrheumatic mitral valve disorder, unspecified; I10 Essential (primary) hypertension; D64.9 Anemia, unspecified; E78.5 Hyperlipidemia, unspecified; K57.92 Diverticulitis of intestine, part unspecified, without perforation or abscess without bleeding; K44.9 Diaphragmatic hernia without obstruction or gangrene; K58.8 Other irritable bowel syndrome; N18.30 Chronic kidney disease, stage 3 unspecified; I65.23 Occlusion and stenosis of bilateral carotid arteries; Z79.899 Other long term (current) drug therapy; Z95.1 Presence of aortocoronary bypass graft; Z79.82 Long term (current) use of aspirin
CPT/HCPCS: 11642; 11643; 36415; 71045; 80048; 80053; 82150; 82550; 82553; 83690; 83735; 84484; 85025; 88305; 88331; 93005; 96361; 96374; 96375; G0378; J0360; J0780; J1100; J2250; J2405; J2765; J3010

== ENCOUNTER → 2022-03-12 | Outpatient (CLI) | payer MEDICARE ==
[~2022-03-12] MED LIST changes: +ASPI81CH33 PO; -LIDOCAINE 1% MDV 20ML VIAL SQ PRN; +MAGN250T11 PO; +NITR0.4S14 SL; -NS 1,000 ML IV SCH; +THERTAB21 PO
== END ==
LOC: M RAD 07:26
PROVIDERS: ATTEND Physician Assistant
DX: I65.22 Occlusion and stenosis of left carotid artery (principal)

== ENCOUNTER → 2022-04-16 | Outpatient (REF) | payer MEDICARE ==
[2022-04-16 17:44] LABS: PERCENT SATURATION 30.2 % (13.2-45.0)
== END ==
LOC: M LAB REF 16:40
PROVIDERS: ATTEND Nurse Practitioner Family
DX: D50.9 Iron deficiency anemia, unspecified (principal)

== ENCOUNTER → 2022-08-27 | Outpatient (CLI) | payer MEDICARE ==
[2022-08-27 11:05] LABS: ALBUMIN 3.6 G/DL (3.2-5.2); BILIRUBIN,DIRECT 0.1 MG/DL (<0.4); BILIRUBIN,TOTAL 0.4 MG/DL (0.3-1.2); CHOLESTEROL RISK RATIO 2.76 (<5); HDL CHOLESTEROL 41.2 MG/DL (>40); LDL CHOLESTEROL 45.2 MG/DL (<100); TOTAL PROTEIN 6.7 G/DL (5.7-8.2)
== END ==
LOC: M PLALAB 08:45
PROVIDERS: ATTEND Physician Assistant
DX: E78.2 Mixed hyperlipidemia (principal)

== ENCOUNTER 2022-09-23 11:21 | Emergency (ER) | payer MEDICARE ==
[~2022-09-23] VITALS: Ht 165.1 cm; Wt 77.3 kg
[2022-09-23] MEDS ORDERED: RA B1TAB7 PO (11:53)
[2022-09-23 11:54] LABS: BASO % 0.2 % (0.0-1.0); EOS # 0.5 10^3/uL (0.0-0.5); EOS % 7.9 % (0.0-3.0); HEMOGLOBIN 10.6 g/dl (12.0-15.5); LYMPH # 1.2 10^3/uL (1.5-5.0); LYMPH % 18.1 % (24.0-44.0); MEAN CORPUSCULAR HEMOGLOBIN 34.1 pg (27.0-33.0); MEAN CORPUSCULAR HGB CONC 32.1 g/dl (32.0-36.5); MEAN CORPUSCULAR VOLUME 106.1 fl (80.0-96.0); MONO # 0.6 10^3/uL (0.0-0.8); MONO % 8.7 % (2.0-8.0); NEUTROPHILS # 4.3 10^3/uL (1.5-8.5); NEUTROPHILS % 64.9 % (36.0-66.0); PLATELET COUNT, AUTOMATED 104 10^3/uL (150-450); RED BLOOD COUNT 3.11 10^6/uL (4.00-5.40); WHITE BLOOD COUNT 6.6 10^3/uL (4.0-10.0)
[2022-09-23 12:24] LABS: CK-MB VALUE MASS < 1.0 NG/ML (<3.6); LIPASE 61 U/L (12-53)
[2022-09-23 12:26] LABS: ALBUMIN 3.6 G/DL (3.2-5.2); ALKALINE PHOSPHATASE 89 U/L (46-116); ALT/SGPT 17 U/L (7.0-40); AST/SGOT 26 U/L (<34); BILIRUBIN,DIRECT 0.2 MG/DL (<0.4); BILIRUBIN,TOTAL 0.5 MG/DL (0.3-1.2); BLOOD UREA NITROGEN 37 MG/DL (9-23); CALCIUM LEVEL 9.3 MG/DL (8.3-10.6); CARBON DIOXIDE LEVEL 28 MMOL/L (20-31); CHLORIDE LEVEL 107 MMOL/L (98-107); CPK CREATINE PHOSPHOKINASE 108 U/L (34-145); CREATININE FOR GFR 2.03 MG/DL (0.55-1.30); GLOMERULAR FILTRATION RATE 24.6 (>32); GLUCOSE, FASTING 97 MG/DL (74-106); MB/CK RELATIVE INDEX 0.92 (< OR =4); POTASSIUM SERUM 4.9 MMOL/L (3.5-5.1); SODIUM LEVEL 142 MMOL/L (136-145); TOTAL PROTEIN 6.6 G/DL (5.7-8.2)
[2022-09-23 12:29] LABS: THYROID STIMULATING HORMONE 0.866 uIU/ML (0.55-4.78)
[2022-09-23 13:20] LABS: MB/CK RELATIVE INDEX 0.97 (< OR =4)
[2022-09-23 14:35] LABS: CK-MB VALUE MASS < 1.0 NG/ML (<3.6)
[2022-09-23 14:44] LABS: CPK CREATINE PHOSPHOKINASE 100 U/L (34-145)
[2022-09-23 15:15] VITALS: BP 180/78
== END 2022-09-23 15:40 | disposition home or self-care (01) ==
LOC: M ED 11:21 → EDBD 11:21 → M ED 15:40
DX: R07.9 Chest pain, unspecified (principal); I25.10 Atherosclerotic heart disease of native coronary artery without angina pectoris; I10 Essential (primary) hypertension; E78.5 Hyperlipidemia, unspecified; N18.9 Chronic kidney disease, unspecified; Z95.1 Presence of aortocoronary bypass graft; Z88.9 Allergy status to unspecified drugs, medicaments and biological substances; Z79.82 Long term (current) use of aspirin; Z79.899 Other long term (current) drug therapy

== ENCOUNTER → 2023-02-18 | Outpatient (REF) | payer MEDICARE ==
[~2023-02-18] MED LIST changes: -HYZA100T6 PO; +LOSA-536 PO; +RA B1TAB7 PO
[2023-02-18 19:12] LABS: TOTAL IRON BINDING CAPACITY 320 UG/DL (250-425); VITAMIN B12 LEVEL 896 PG/ML (211-911)
[2023-02-18 19:13] LABS: IRON (FE) 89 UG/DL (50-170); PERCENT SATURATION 27.8 % (13.2-45.0)
[2023-02-18 19:14] LABS: FERRITIN 153.1 NG/ML (7.3-270.7)
[2023-02-18 19:19] LABS: FOLATE > 24.0 NG/ML (>5.4)
== END ==
LOC: M LAB REF 17:45
PROVIDERS: ATTEND Nurse Practitioner Family
DX: D50.9 Iron deficiency anemia, unspecified (principal); D64.9 Anemia, unspecified

== ENCOUNTER → 2023-03-12 | Outpatient (CLI) | payer MEDICARE ==
[2023-03-12 14:05] LABS: CHOLESTEROL RISK RATIO 2.46 (<5); HDL CHOLESTEROL 46.2 MG/DL (>40); LDL CHOLESTEROL 52.2 MG/DL (<100); NON-HDL-C 67.8 MG/DL
[2023-03-12 14:07] LABS: THYROID STIMULATING HORMONE 0.727 uIU/ML (0.55-4.78)
== END ==
LOC: M PLALAB 11:37
PROVIDERS: ATTEND Family Medicine
DX: Z00.00 Encounter for general adult medical examination without abnormal findings (principal); D64.9 Anemia, unspecified; N18.4 Chronic kidney disease, stage 4 (severe); R53.83 Other fatigue; I25.10 Atherosclerotic heart disease of native coronary artery without angina pectoris; E78.49 Other hyperlipidemia; R73.03 Prediabetes; I10 Essential (primary) hypertension; E55.9 Vitamin D deficiency, unspecified

== ENCOUNTER → 2023-04-10 | Outpatient (CLI) | payer MEDICARE ==
[2023-04-10 14:56] LABS: CHOLESTEROL RISK RATIO 2.52 (<5); HDL CHOLESTEROL 45.9 MG/DL (>40); LDL CHOLESTEROL 47.3 MG/DL (<100); NON-HDL-C 70.1 MG/DL
== END ==
LOC: M PLALAB 09:43
PROVIDERS: ATTEND Family Medicine
DX: I25.10 Atherosclerotic heart disease of native coronary artery without angina pectoris (principal); M79.10 Myalgia, unspecified site; E78.49 Other hyperlipidemia

== ENCOUNTER → 2023-05-30 | Outpatient (REF) | payer MEDICARE ==
[2023-05-30 19:43] LABS: FERRITIN 196.3 NG/ML (7.3-270.7)
[2023-05-30 19:48] LABS: PERCENT SATURATION 25.6 % (13.2-45.0)
== END ==
LOC: M LAB REF 17:37
PROVIDERS: ATTEND Nurse Practitioner Family
DX: D50.9 Iron deficiency anemia, unspecified (principal)